=== PATIENT | female | born 1990 | race Caucasian/White ===

== ENCOUNTER → 2019-12-06 11:03 | Outpatient (BNVA) | payer OTHER, SELFPAY | PROVIDERS: PCP Internal Medicine; Referring Provider Internal Medicine; Visit Provider Advanced Practice Midwife | DX: Z76.89 Persons encountering health services in other specified circumstances (principal) ==

== ENCOUNTER 2020-07-13 15:27 | Outpatient (REF) | payer OTHER, SELFPAY ==
[2020-07-16 08:26] LABS: HBS Num1 8.21 mIU/mL (0-7.99)
[2020-07-16 10:13] LABS: HBS Num2 7.93 mIU/mL (0-7.99); ~Hepatitis B Surface Antibody GRAYZONE (Nonreactive)
[2020-07-16 17:16] LABS: Rubella IgG Antibody 3.17 Index; Varicella IgG Antibody >4000.00 index
== END 2020-07-13 15:28 | disposition home or self-care (01) ==
LOC: HO.MANLDS 15:27
PROVIDERS: PCP Internal Medicine; Visit Provider Physician Assistant
DX: Z01.84 Encounter for antibody response examination (principal)
CPT/HCPCS: 36415; 86706; 86735; 86762; 86765; 86787

== ENCOUNTER 2020-07-16 14:27 | Outpatient (REF) | payer OTHER, SELFPAY ==
[2020-07-17 08:42] LABS: HBS Num1 7.31 mIU/mL (0-7.99); ~Hepatitis B Surface Antibody NONREACTIVE (Nonreactive)
== END 2020-07-16 14:28 | disposition home or self-care (01) ==
LOC: HO.MANLDS 14:27
PROVIDERS: PCP Internal Medicine; Visit Provider Physician Assistant
DX: Z23 Encounter for immunization (principal)
CPT/HCPCS: 36415; 86706

== ENCOUNTER → 2021-07-01 13:15 | Outpatient (BNVA) | payer SELFPAY | PROVIDERS: PCP Internal Medicine; Visit Provider Physician Assistant Medical | DX: M54.9 Dorsalgia, unspecified (principal) ==

== ENCOUNTER → 2021-09-10 10:47 | Outpatient (BNVA) | payer SELFPAY | PROVIDERS: PCP Internal Medicine | DX: R76.11 Nonspecific reaction to tuberculin skin test without active tuberculosis (principal) ==

== ENCOUNTER → 2021-09-17 11:49 | Outpatient (BNVA) | payer SELFPAY | PROVIDERS: PCP Internal Medicine | DX: R76.11 Nonspecific reaction to tuberculin skin test without active tuberculosis (principal) ==

== ENCOUNTER 2022-01-15 18:06 | Outpatient (REF) | payer BC, SELFPAY ==
[2022-01-15 18:56] LABS: Influenza A PCR NEGATIVE (Negative); Influenza B PCR NEGATIVE (Negative); Resp Syncy Virus RNA Qual PCR NEGATIVE (Negative); SARS COV2 PCR INHOUSE NEGATIVE (Negative)
== END 2022-01-15 18:07 | disposition home or self-care (01) ==
LOC: HO.LNP 18:06
PROVIDERS: Visit Provider Nurse Practitioner Family
DX: Z20.822 Contact with and (suspected) exposure to COVID-19 (principal); R09.89 Other specified symptoms and signs involving the circulatory and respiratory systems
CPT/HCPCS: 0241U

== ENCOUNTER 2022-01-21 07:27 | Emergency (ER) | payer BC, SELFPAY ==
--- NOTE | ~2022-01-21 | XR_ITS ---
EXAMINATION: XR CHEST CLINICAL INFORMATION: Cough. COMPARISON: None TECHNIQUE: 2 views of the chest were obtained. FINDINGS: No significant abnormality is noted involving the heart, lungs, mediastinum, bony thorax or soft tissues. XR/XR chest 2V IMPRESSION: Unremarkable chest examination.
[2022-01-21 07:33] VITALS: BP 159/103; PULSE 113; RESP 20; TEMP 36.7; O2SAT 97; BMI 47.1
--- OUTSIDE RECORDS SUMMARY | 2022-01-21 07:52 | XMS_ITS | Continuity of Care Document ---
:1990 Author Organization [facility] Address [address] [place] [id number]- Care Team Providers Name Role Phone Kenneth Alba DO Kerry Primary Care Physician Encounter [facility] [place] Date(s): 05/25/20 - 06/24/[address] [id number]- Attending Physician: Greg Killian Admitting Physician: AdmtrGreg Referring Physician: Admtr ArLamin Allergies, Adverse Reactions, Alerts Substance Reaction Severity Status amoxicillin1 Latex allergy Moderate Active Vancomycin vancomycin2 Moderate Active Latex3 Moderate Active NyQuil D4 Moderate Active DayQuil5 Moderate Active 1abdominal [id number] Medications Freestyle Lite Lancets See Instructions, # 1 pack/packet, Refills 3, Tot. Refills 3, Maintenance, To test blood sugar 4 x day. 1 packet =100 lancets, 05/15/20 15:18:00 EDT, Compound Start Date: 05/15/20 Status: OrderedFreestyle Lite Monitor See Instructions, # 1 kit, Refills 0, Tot. Refills 0, Maintenance, To test BS 4 x day., 05/15/20 15:18:00 EDT, Compound Start Date: 05/15/20 Status: OrderedFreestyle Lite Test Strips See Instructions, # 1 pack/packet, Refills 3, Tot. Refills 3, Maintenance, To test blood sugar 4 x day. 1 Bottle= 100 test strips, 05/15/20 15:18:00 EDT, Compound Start Date: 05/15/20 Status: OrderedPepcid 20 mg oral tablet 1 tablet = 20 mg, By Mouth, 2 times a day, # 60 tablet, 0 Refills, Maintenance, 06/20/20 22:41:00 EDT, Tablet, Partial fill upon patient request if the prescription is for a schedule II opioid drug. Start Date: 06/20/20 Status: OrderedTylenol 325 mg oral tablet 650 mg, 2, tablet, By Mouth, Every 4 hours, Refills 0, Maintenance, 06/20/20 22:41:00 EDT, Partial fill upon patient request if the prescription is for a schedule II opioid drug. Start Date: 06/20/20 Status: Ordered Problem List Condition Effective Dates Status Health Status Informant Eczema(Confirmed) Active Gestational diabetes(Confirmed) Active Gestational diabetes mellitus, class 06/20/20 Active A>1<(Confirmed)1 History of MRSA infection(Confirmed) Active Obesity(Confirmed) Active Back spasm(Confirmed) Active 1Problem added by Discern Expert Social History Social History Type Response Smoking Status Never (less than 100 in life time) entered on: 06/20/20 Sex
--- OUTSIDE RECORDS SUMMARY | 2022-01-21 07:52 | XMS_ITS | Continuity of Care Document ---
:1990 Author Organization [facility] Address [address] [place] [id number]- Care Team Providers Name Role Phone Kenneth Alba DO Kerry Primary Care Physician [place] [facility] [place] Date(s): 06/04/20 - 07/04/20 [facility] [address] [place] [id number] Attending Physician: AdmtrGreg Admitting Physician: Admtr, [id number] Referring Physician: Admtr, [id number] Allergies, Adverse Reactions, Alerts Substance Reaction Severity Status amoxicillin1 Latex allergy Moderate Active Vancomycin vancomycin2 Moderate Active Latex3 Moderate Active NyQuil D4 Moderate Active DayQuil5 Moderate Active 1abdominal [id number] Medications Freestyle Lite Lancets See Instructions, # [...]
--- OUTSIDE RECORDS SUMMARY | 2022-01-21 07:52 | XMS_ITS | Continuity of Care Document ---
:1990 Author Organization [facility] Address [address] [place] [id number]- Care Team Providers Name Role Phone Kenneth Alba DO Kerry Primary Care Physician Encounter [facility] [place] Date(s): 06/20/20 - 06/21/[address] [address] Discharge Disposition: A-D/C Home Attending Physician: Leighann Springer MD Admitting Physician: Leighann Springer MD Referring Physician: Leighann Springer MD Allergies, Adverse Reactions, Alerts Substance Reaction Severity Status amoxicillin1 Latex allergy Moderate Active Vancomycin vancomycin2 Moderate Active Latex3 Moderate Active NyQuil D4 Moderate Active DayQuil5 Moderate Active 1abdominal [id number] Medications Freestyle Lite Lancets See Instructions, # [...] spasm(Confirmed) Active 1Problem added by Discern Expert Vital Signs Most recent to oldest [Reference Range]: 1 Weight 121.4 kg (06/20/20 10:34 PM) Oxygen Saturation [94-100 %] 99 % (06/20/20 10:50 PM) Blood Pressure [90-138/55-84 mm Hg] 114/74 mm Hg (06/20/20 10:50 PM) Respiratory Rate [16-30 br/min] 18 br/min (06/20/20 10:50 PM) Temperature [96.8-100.4 DegF] 98.1 DegF (06/20/20 10:50 PM) Mode of Delivery (Oxygen) Room air (06/20/20 10:50 PM) Blood pressure sites Arm, left (06/20/20 10:50 PM) Temperature Route Oral (06/20/20 10:50 PM) Dry Weight 121.4 kg (06/20/20 10:34 PM) Weight Obtained Via Standing scale (06/20/20 10:34 PM) Social History Social History Type Response Smoking Status Never (less than 100 in life time) entered on: 06/20/20 Sex
--- OUTSIDE RECORDS SUMMARY | 2022-01-21 07:52 | XMS_ITS | Continuity of Care Document ---
:1990 Author Organization [facility] Address [address] [place] [phone]- Care Team Providers Name Role Phone Kenneth Alba DO Primary Care Physician Encounter [facility] [place] Date(s): 07/19/20 - 07/21/[address] [id number] Discharge Disposition: A-D/C Home Attending Physician: Paco Nicole MD Admitting Physician: Paco Nicole MD Referring Physician: Paco Nicole MD Allergies, Adverse Reactions, Alerts Substance Reaction Severity Status amoxicillin1 Latex allergy Moderate Active Vancomycin vancomycin2 Moderate Active Latex3 Moderate Active NyQuil D4 Moderate Active DayQuil5 Moderate Active 1abdominal [id number] Medications Acetaminophen Tablet 650 mg, Tablet, By Mouth, Every 4 hours, PRN for Pain , Mild, (1-3), may give 325mg per patient preference and re-dose with 325mg within 4 hours, if needed. Patient should only receive a total of 650mgof Acetaminophen every 4 hours., Routine, 07/20... Start Date: 07/20/20 Stop Date: 07/22/20 Status: DiscontinuedDocusate Sodium Capsule 100 mg, 1, capsule, By Mouth, 2 times a day, PRN, Refills 0, Maintenance, Constipation, 07/21/20 12:34:00 EDT, Partial fill upon patient request if the prescription is for a schedule II opioid drug. Start Date: 07/21/20 Status: Orderedibuprofen 800 mg oral tablet 800 mg, 1, tablet, By Mouth, Every 8 hours, PRN, (4-6), may give 400mg per patient preference and re-dose with 400mg within 8 hours if needed. Patient should only receive a total of 800mg of Ibuprofen every 8 hours., Refills 0, Maintenance, Pain , M... Start Date: 07/21/20 Status: OrderedTylenol 325 mg oral tablet 650 mg, 2, tablet, By Mouth, Every 4 hours, Refills 0, Maintenance, 06/20/20 22:41:00 EDT, Partial fill upon patient request if the prescription is for a schedule II opioid drug. Start Date: 06/20/20 Status: Ordered Problem List Condition Effective Dates Status Health Status Informant Eczema(Confirmed) Active Gestational diabetes(Confirmed) Active History of MRSA infection(Confirmed) Active Obesity(Confirmed) Active Post depression(Confirmed)1 Active Back spasm(Confirmed) Active 1? H/O in second Vital Signs Most recent to oldest 1 2 3 [Reference Range]: Height 160 cm 160 cm 160 cm (07/21/20 11:30 AM) (07/20/20 11:13 PM) (07/20/20 8 :00 AM) Weight 125.9 kg (07/19/20 9:33 PM) Oxygen Saturation [94-100 100 % 100 % 100 % %] (07/20/20 12:45 AM) (07/20/20 12:30 AM) (07/20/20 1 2:15 AM) Pulse Rate [55-90 bpm] 86 bpm 84 bpm 90 bpm (07/21/20 11:31 AM) (07/20/20 11:13 PM) (07/20/20 4 :59 PM) Body Mass Index 49.18 [18.5-24.99] *>HHI* (07/19/20 9:33 PM) Blood Pressure 142/73 mm Hg 111/59 mm Hg 138/77 mm Hg [90-138/55-84 mm Hg] *H* (07/20/20 11:13 PM) (07/20/20 4:59 PM) (07/21/20 11:31 AM) Respiratory Rate [16-30 18 br/min 18 br/min 18 br/mi n br/min] (07/21/20 11:31 AM) (07/20/20 11:13 PM) (07/20/20 5 :59 PM) Temperature [96.8-100.4 98.2 DegF 98.4 DegF 98.2 Deg F DegF] (07/21/20 11:31 AM) (07/20/20 11:13 PM) (07/20/20 4 :59 PM) Mode of Delivery (Oxygen) Room air Room air (07/19/20 9:33 PM) (07/19/20 5:28 PM) Blood pressure sites Arm, left Arm, left Arm, left (07/21/20 11:31 AM) (07/20/20 11:13 PM) (07/19/20 9 :33 PM) Temperature Route Oral Oral Oral (07/21/20 11:31 AM) (07/20/20 11:13 PM) (07/20/20 4 :59 PM) Dry Weight 125.9 kg (07/19/20 9:33 PM) Weight Obtained Via Patient/family stated (07/19/20 9:33 PM) Dry Weight Obtained Via Patient/family stated (07/19/20 9:33 PM) Social History Social History Type Response Smoking Status Never (less than 100 in life time) entered on: 06/20/20 Sex
--- NOTE | 2022-01-21 08:13 | ECG_ITS ---
Test Reason : SOB Blood Pressure : / mmHG Vent. Rate : 079 BPM Atrial Rate : 079 BPM P-R Int : 160 ms QRS Dur : 080 ms QT Int : 340 ms P-R-T Axes : 030 031 016 degrees QTc Int : 389 ms Normal sinus rhythm with sinus arrhythmia Normal ECG When compared with ECG of 19-OCT-2017 09:27, No significant change was found Referred By: Myrtle Velasco Electronically Signed By:JHON BROWN MD
--- NOTE | 2022-01-21 08:16 | ED.URI ---
HPI - URI/Sore Throat General Chief Complaint: Upper Respiratory Symptoms Stated Complaint: Bronchitis Chest Tightness Cough Time Seen by Provider: 01/21/22 08:04 Source: patient Mode of arrival: ambulatory History of Present Illness HPI Narrative: 31-year-old female with a past medical history of bronchitis presenting to the ED complaining of continued dry cough, chest tightness, SOB, and orthopnea x3 weeks. reports heart rate was elevated into the 130s overnight. Admits has been seen at urgent care twice finished 5 day course of prednisone 2 days ago without relief. States feels like she is wheezing. Denies sick contacts, recent travel, pedal edema, calf pain, cigarette smoking, abdominal pain, nausea/vomiting MD elicited complaint: sore throat, rhinorrhea and nasal congestion Onset (ago): week(s) Related Data Previous Rx's Medication Instructions Recorded prednisone 20 mg tablet 40 mg PO DAILY 5 days #10 tabs 01/15/22 albuterol sulfate 90 mcg/actuation 2 puff inhalation Q4-6H PRN 01/21/22 aerosol inhaler shortness of breath or wheezing #6.7 grams benzonatate 100 mg capsule 100 mg PO TID PRN cough #14 caps 01/21/22 ondansetron 4 mg disintegrating 4 mg PO Q8H PRN nausea and 01/21/22 tablet vomiting #10 tabs Allergies Allergy/AdvReac Type Severity Reaction Status Date / Time latex [Latex] Allergy Intermediate HIVES Verified 01/15/22 15:33 vancomycin [VANCOMYCIN] Allergy Intermediate ITCHING, Verified 01/15/22 15:33 REDNESS, hives amoxicillin Allergy Unknown nausea and Verified 01/15/22 15:33 vomiting-severe abdominal pain doxylamine [From NYQUIL] Allergy Unknown HIVES Verified 01/15/22 15:33 dextromethorphan Allergy Vomiting Verified 01/21/22 07:36 guaifenesin Allergy Vomiting Verified 01/21/22 07:36 DayQuil Multi-Symptom Allergy Unknown hives Uncoded 01/15/22 15:33 Review of Systems Review of Systems: Constitutional: No Fever, No Chills, No Fatigue, No Malaise ENT/Mouth: No Ear Pain, + Nasal Congestion, + sore throat, + Rhinorrhea, No Swallowing Difficulty Eyes: No Eye Pain, No Swelling, No Redness, No Vision Changes Cardiovascular: + Chest tightness, + SOB, No Dyspnea on Exertion, + Orthopnea, No Edema, No Palpitations Respiratory: + Cough, No Sputum, + Wheezing, No Smoke Exposure, No Dyspnea Gastrointestinal: No Nausea, No Vomiting, No Diarrhea, No Constipation, No Abdominal pain Genitourinary: No Dysuria, No Urinary Frequency, No Hematuria, No Flank Pain Musculoskeletal: No joint pain, No Myalgias, No Joint Swelling Skin: No Skin Lesions, No rash Neuro: No Weakness, No Numbness, No Loss of Consciousness, No Dizziness, No Headache Yes all other systems are reviewed and are negative Constitutional: Constitutional: Reports as per [facility] Past Medical History Attestation statement: The following information was validated with the patient. Social History Social History Patient Tobacco Use Status: Never used Tobacco Advance Directives: No Physical Exam Vital Signs: Vital Signs: Last Vital Signs Temp 98.1 F 01/21/22 07:33 Pulse 95 01/21/22 10:17 Resp 16 01/21/22 10:17 BP 151/74 H 01/21/22 10:17 Pulse Ox 96 01/21/22 10:17 O2 Del Method 01/21/22 10:17 BMI result Body Mass Index 47.1 Const: General: cooperative, healthy appearing and no acute distress Orientation/consciousness: patient oriented x3 Limitations: no limitations HEENT: Head: Yes normal to inspection and Yes atraumatic Ears: hearing grossly normal bilaterally General nose exam: Normal external nose present Face and sinus: Yes normal facial exam Throat: Yes posterior oropharynx normal, Yes tonsils normal and Yes uvula midline Eyes: General: appearance normal, both eyes and all related structures EOM: EOMs intact bilaterally Neck: Neck: Yes normal visual inspection and Yes no meningeal signs Resp: Effort & Inspection: normal respiratory effort, Actively coughing Quality: dry and no respiratory distress Auscultation: clear to auscultation bilaterally, no crackles, no rales, no rhonchi and no wheezes Cardio: Rate: regular rate Heart sounds: S1 normal heart sound present and S2 normal heart sound present GI: Inspection: Yes normal to inspection Palpation (GI): Soft to palpation, nontender, no guarding and not rigid Skin: Rashes: no rashes Wounds: no wounds Neuro: General: patient oriented x3, tone normal and no meningeal signs Gait exam (Neuro): Normal gait present Extrem: General: Yes normal to inspection, Yes no pedal edema and Yes no calf tenderness Course Course Course Narrative: -1000-- no leukocytosis. BUN mildly elevated likely from dehydration. Labs otherwise unremarkable, troponin and BNP WNL XR chest 2V IMPRESSION: Unremarkable chest examination. -influenza A positive Results discussed with patient including worrisome signs and symptoms and strict return precautions, and when to return to the emergency department. They verbalized understanding and feel safe for discharge at this time. Medications Administered Discontinued Medications Generic Name Dose Route Start Last Admin Trade Name Freq PRN Reason Stop Dose Admin Hydrocodone Bit/Homatropine Methylb 5 ml 01/21/22 08:13 01/21/22 08:52 Hydrocodone/Homat 5/1.5/5 Ml 5 Ml Syrup PO 01/21/22 08:14 Not Given ONCE ONE Levalbuterol HCl 1.25 mg 01/21/22 08:13 01/21/22 09:04 Levalbuterol Hcl 1.25 Mg/0.5 Ml Vial.Neb INHALE 01/21/22 08:14 1.25 mg ONCE ONE Administration MDM - URI/Sore Throat MDM Narrative Medical decision making narrative: 31-year-old female with a past medical history of bronchitis presenting to the ED complaining of continued dry cough, chest tightness, SOB, and orthopnea x3 weeks. On exam hypertensive & tachycardic likely from coughing on exam, lungs CTA, nontoxic appearing, no pedal edema/calf tenderness. Concern for viral illness vs bronchitis vs pneumonia. Symptoms atypical for ACS/ PE. Lower suspicion for CHF plan: EKG, labs, CXR, Xopenex, COVID-19/influenza/ RSV testing Differential Diagnosis Differential diagnosis: Likely upper respiratory infection, viral infection, bronchitis, influenza and pharyngitis Medical Records Attestation: I reviewed the patient's medical records. Lab Data Attestation: I reviewed the patient's lab results. Result diagrams: 01/21/22 08:39 01/21/22 08:39 Labs: Lab Results 01/21/22 01/21/22 01/21/22 Range/Units 08:16 08:39 08:39 WBC 10.5 (4.8-10.8) X10*3/uL RBC 4.46 (4.20-5.50) X10*6/uL Hgb 12.9 (12.0-16.0) g/dl Hct 38.5 (37.0-47.0) % MCV 86.3 (80.0-98.0) fL MCH 28.9 (27.0-33.0) pg MCHC 33.5 (31.0-35.0) g/dl RDW 13.1 (11.0-16.0) % Plt Count 330 (160-400) X10*3/uL MPV 8.7 L (9.4-12.3) fL Immature Gran % (Auto) 0.6 H (0.0-0.4) % Neut % (Auto) 66.8 (45-73) % Lymph % (Auto) 25.1 (20-40) % Rolette % (Auto) 4.2 (2-11) % Eos % (Auto) 2.9 (0-4) % Baso % (Auto) 0.4 (0-2) % Lymph # (Auto) 2.6 (1.2-4.9) X10*3/uL Rolette # (Auto) 0.4 (0.1-1.2) X10*3/uL Eos # (Auto) 0.3 (0.0-0.4) X10*3/uL Baso # (Auto) 0.0 (0.0-0.2) X10*3/uL Abs Immat Gran (auto) 0.06 H (0.00-0.03) X10*3/uL Absolute Neuts (auto) 7.0 (2.0-8.3) x10*3/uL Absolute Nucleated RBC 0.000 (0.0-0.012) X10*3/uL Nucleated RBC % (auto) 0.0 (0.0-0.2) /100WBC Sodium 137 (135-145) mmol/L Potassium 4.0 (3.3-5.1) mmol/L Chloride 103 (96-108) mmol/L Carbon Dioxide 27 (22-29) mmol/L Anion Gap 11 L (12-20) BUN 18 H (9-16) mg/dL Creatinine 0.72 (0.5-1.4) mg/dL Estim Creat Clear Calc 141.1 Estimated GFR > 60 Random Glucose 88 (60-115) mg/dL Calcium 8.8 (8.4-10.2) mg/dL Troponin I High Sens (<3.5-17.0) ng/L B-Natriuretic Peptide (<100) pg/mL Influenza Type A (PCR) POSITIVE A (Negative) Influenza Type B (PCR) NEGATIVE (Negative) RSV RNA Qual (PCR) NEGATIVE (Negative) SARS-CoV-2 RNA (RT-PCR) NEGATIVE (Negative) 01/21/22 01/21/22 Range/Units 08:39 08:39 WBC (4.8-10.8) X10*3/uL RBC (4.20-5.50) X10*6/uL Hgb (12.0-16.0) g/dl Hct (37.0-47.0) % MCV (80.0-98.0) fL MCH (27.0-33.0) pg MCHC (31.0-35.0) g/dl RDW (11.0-16.0) % Plt Count (160-400) X10*3/uL MPV (9.4-12.3) fL Immature Gran % (Auto) (0.0-0.4) % Neut % (Auto) (45-73) % Lymph % (Auto) (20-40) % Rolette % (Auto) (2-11) % Eos % (Auto) (0-4) % Baso % (Auto) (0-2) % Lymph # (Auto) (1.2-4.9) X10*3/uL Rolette # (Auto) (0.1-1.2) X10*3/uL Eos # (Auto) (0.0-0.4) X10*3/uL Baso # (Auto) (0.0-0.2) X10*3/uL Abs Immat Gran (auto) (0.00-0.03) X10*3/uL Absolute Neuts (auto) (2.0-8.3) x10*3/uL Absolute Nucleated RBC (0.0-0.012) X10*3/uL Nucleated RBC % (auto) (0.0-0.2) /100WBC Sodium (135-145) mmol/L Potassium (3.3-5.1) mmol/L Chloride (96-108) mmol/L Carbon Dioxide (22-29) mmol/L Anion Gap (12-20) BUN (9-16) mg/dL Creatinine (0.5-1.4) mg/dL Estim Creat Clear Calc Estimated GFR Random Glucose (60-115) mg/dL Calcium (8.4-10.2) mg/dL Troponin I High Sens < 3.5 (<3.5-17.0) ng/L B-Natriuretic Peptide < 10 (<100) pg/mL Influenza Type A (PCR) (Negative) Influenza Type B (PCR) (Negative) RSV RNA Qual (PCR) (Negative) SARS-CoV-2 RNA (RT-PCR) (Negative) ECG Data Attestation: I personally reviewed and interpreted this ECG as follows: ECG interpretation date: 01/21/22 ECG interpretation time: 08:24 Interpretation: EKG normal sinus rhythm with sinus arrhythmia at a rate of 79. QRS 80. QTC 389. No STEMI Discharge Plan Discharge Clinical Impression: Influenza A Patient Disposition: Home, Self-Care Instructions: Influenza (ED) Additional Instructions: you have influenza A. You are contagious, cover mouth, wash her hands rest, stay hydrated, take Tylenol and Motrin as needed. Use albuterol inhaler as needed for shortness of breath / wheezing Zofran as antinausea medication. Tessalon Perles for cough If symptoms persist or worsen return to the emergency department. Please follow-up with her doctor Prescriptions: New benzonatate 100 mg capsule 100 mg PO TID PRN (Reason: cough) Qty: 14 0RF albuterol sulfate 90 mcg/actuation HFA aerosol inhaler 2 puff inhalation Q4-6H PRN (Reason: shortness of breath or wheezing) Qty: 6.7 0RF ondansetron 4 mg tablet,disintegrating 4 mg PO Q8H PRN (Reason: nausea and vomiting) Qty: 10 0RF No Action prednisone 20 mg tablet 40 mg PO DAILY 5 Days Qty: 10 0RF Referrals: Kenneth Alba MD [Primary Care Provider] - 1 week Stand Alone Forms: Work/School Release Interventions: ED Discharge Assessment Last Done: 01/21/22 10:32 Discharge Date/Time: 01/21/22 10:33
[2022-01-21 08:43] LABS: MANUAL DIFF FLAG NO
[2022-01-21 08:46] LABS: Basophils Percent Auto 0.4 % (0-2); Eosinophils Absolute Auto 0.3 X10*3/uL (0.0-0.4); Eosinophils Percent Auto 2.9 % (0-4); Hematocrit 38.5 % (37.0-47.0); Hemoglobin 12.9 g/dl (12.0-16.0); Imm Gran Abs Auto 0.06 X10*3/uL (0.00-0.03); Imm Gran Pct Auto 0.6 % (0.0-0.4); Lymphocytes Absolute Auto 2.6 X10*3/uL (1.2-4.9); Lymphocytes Percent Auto 25.1 % (20-40); Mean Corpuscular HGB Conc 33.5 g/dl (31.0-35.0); Mean Corpuscular Hemoglobin 28.9 pg (27.0-33.0); Mean Corpuscular Volume 86.3 fL (80.0-98.0); Mean Platelet Volume 8.7 fL (9.4-12.3); Monocytes Absolute Auto 0.4 X10*3/uL (0.1-1.2); Monocytes Percent Auto 4.2 % (2-11); Neutrophils Percent Auto 66.8 % (45-73); Platelet Count 330 X10*3/uL (160-400); Red Blood Count 4.46 X10*6/uL (4.20-5.50); Red Cell Distribution Width 13.1 % (11.0-16.0); White Blood Count 10.5 X10*3/uL (4.8-10.8)
[2022-01-21 08:59] LABS: Anion Gap 11 (12-20); Blood Urea Nitrogen 18 mg/dL (9-16); Calcium 8.8 mg/dL (8.4-10.2); Carbon Dioxide 27 mmol/L (22-29); Chloride 103 mmol/L (96-108); Creatinine Clr Calc Pharmacy 141.1; Estimated Glomerular Filt Rate > 60; Glucose Random 88 mg/dL (60-115); Sodium 137 mmol/L (135-145)
[2022-01-21 09:08] VITALS: PULSE 85; RESP 16; O2SAT 99
[2022-01-21 09:26] LABS: Influenza A PCR POSITIVE (Negative); Influenza B PCR NEGATIVE (Negative); Resp Syncy Virus RNA Qual PCR NEGATIVE (Negative); SARS COV2 PCR INHOUSE NEGATIVE (Negative)
[2022-01-21 09:38] LABS: B Type Natriuretic Peptide < 10 pg/mL (<100)
[2022-01-21 09:46] LABS: Troponin-I High Sensitivity < 3.5 ng/L (<3.5-17.0)
[2022-01-21 10:17] VITALS: BP 151/74; PULSE 95; RESP 16; O2SAT 96
== END 2022-01-21 10:33 | disposition home or self-care (01) ==
PROVIDERS: Physician Assistant; Emergency Provider Emergency Medicine; PCP Internal Medicine
DX: J10.1 Influenza due to other identified influenza virus with other respiratory manifestations (principal); R05.9 Cough, unspecified; I49.8 Other specified cardiac arrhythmias; R06.02 Shortness of breath; Z20.822 Contact with and (suspected) exposure to COVID-19; Z79.899 Other long term (current) drug therapy
CPT/HCPCS: 0241U; 36415; 71046; 80048; 83880; 84484; 85025; 93005; 94640; 99284

== ENCOUNTER 2022-04-08 02:35 | Emergency (ER) | payer BC, SELFPAY ==
--- NOTE | ~2022-04-08 | CT_ITS ---
EXAMINATION: CT ABDOMEN AND PELVIS WITHOUT CONTRAST CLINICAL INFORMATION: Right flank pain. COMPARISON: None TECHNIQUE: Multidetector volumetric imaging was performed from the superior aspect of the liver through the pubic symphysis. Sagittal and coronal reformatted images were obtained on the technologist's workstation. This CT examination was performed using dose optimization techniques as appropriate, variously including the following: *Automated exposure control *Adjustment of mA and/or kV according to patient size (this includes techniques or standardized protocols for targeted exams where dose is matched to indication/reason for exam; i.e. extremities or head) *Use of iterative reconstruction technique DLP: 981 mGy-cm FINDINGS: LUNG BASES: The visualized lung bases are unremarkable. LIVER, GALLBLADDER, AND BILIARY TREE: The liver is normal in size and shape with decreased attenuation. No focal hepatic lesion or biliary ductal dilatation is present. The gallbladder is unremarkable with no evidence of radiopaque gallstones, gallbladder wall thickening, or obvious pericholecystic inflammatory changes. PANCREAS: Unremarkable. SPLEEN: Unremarkable. ADRENAL GLANDS: Unremarkable. KIDNEYS AND URETERS: The kidneys are normal in size, shape, and attenuation. Mild right hydroureteronephrosis. Distal ureteral 0.4 cm calculus is 2.5 cm from the ureterovesicular junction. 0.3 cm right lower pole renal calculus is 15 cm from the posterior axillary line. BLADDER: Unremarkable. GASTROINTESTINAL TRACT: The small and large bowel are unremarkable. The appendix is unremarkable. ABDOMINAL WALL: No significant hernia is appreciated. LYMPH NODES: Normal. VASCULAR: Unremarkable. PELVIC VISCERA: The uterus and adnexa are unremarkable. IUD in place. OSSEOUS STRUCTURES: No acute or suspicious osseous abnormality. Mild degenerative change of L4-L5. CT/CT abdomen pelvis wo IV con IMPRESSION: 1. Mild right hydroureteronephrosis with a 0.4 cm distal ureteral obstructing calculus. 2. Hepatic steatosis. Fleischner guidelines were followed.
[2022-04-08 02:39] VITALS: BP 151/75; PULSE 88; RESP 18; TEMP 36.3; O2SAT 97; BMI 47.8
[2022-04-08 03:00] LABS: MANUAL DIFF FLAG NO
[2022-04-08 03:02] LABS: Basophils Absolute Auto 0.1 X10*3/uL (0.0-0.2); Basophils Percent Auto 0.4 % (0-2); Eosinophils Absolute Auto 0.1 X10*3/uL (0.0-0.4); Eosinophils Percent Auto 0.7 % (0-4); Hematocrit 35.5 % (37.0-47.0); Hemoglobin 12.3 g/dl (12.0-16.0); Imm Gran Abs Auto 0.06 X10*3/uL (0.00-0.03); Imm Gran Pct Auto 0.4 % (0.0-0.4); Lymphocytes Absolute Auto 1.5 X10*3/uL (1.2-4.9); Lymphocytes Percent Auto 10.7 % (20-40); Mean Corpuscular HGB Conc 34.6 g/dl (31.0-35.0); Mean Corpuscular Hemoglobin 29.6 pg (27.0-33.0); Mean Corpuscular Volume 85.3 fL (80.0-98.0); Mean Platelet Volume 9.4 fL (9.4-12.3); Monocytes Absolute Auto 0.5 X10*3/uL (0.1-1.2); Monocytes Percent Auto 3.4 % (2-11); Neutrophils Absolute Auto 11.7 x10*3/uL (2.0-8.3); Neutrophils Percent Auto 84.4 % (45-73); Platelet Count 274 X10*3/uL (160-400); Red Blood Count 4.16 X10*6/uL (4.20-5.50); Red Cell Distribution Width 12.5 % (11.0-16.0); White Blood Count 13.9 X10*3/uL (4.8-10.8)
[2022-04-08 03:22] LABS: Anion Gap 15 (12-20); Blood Urea Nitrogen 19 mg/dL (9-16); Calcium 8.8 mg/dL (8.4-10.2); Carbon Dioxide 20 mmol/L (22-29); Chloride 106 mmol/L (96-108); Creatinine Clr Calc Pharmacy 107.9; Estimated Glomerular Filt Rate > 60; Glucose Random 134 mg/dL (60-115); Potassium 4.4 mmol/L (3.3-5.1); Sodium 137 mmol/L (135-145)
[2022-04-08 03:31] LABS: Appearance Urine Clear; Color Urine Yellow; Glucose Urine UA Negative (Negative); Leukocyte Esterase Urine Small (1+) (Negative); Nitrite Urine Negative (Negative); Specific Gravity - Urine 1.025 (1.005-1.025); UMIC TRIGGER UACC YES; Urine Blood Large (3+) (Negative); Urine Ketones Negative (Negative); Urine Protein Trace mg/dL (Neg-Trace)
[2022-04-08 03:33] LABS: UPreg QC Valid YES; Urine Pregnancy NEGATIVE (NEGATIVE)
[2022-04-08] MEDS: levoFLOXacin/D5W 750 MG/150 ML PIGGYBACK 100 MG IV (03:36)
[2022-04-08] MEDS: Morphine Sulfate 2 MG/ML CARTRIDGE IVPUSH (03:36)
--- NOTE | 2022-04-08 03:38 | ED.GENADULT ---
HPI - General Adult General Chief complaint: Nausea/Vomiting/Diarrhea Stated complaint: UTI, Vomiting, Nausea, pain Time Seen by Provider: 04/08/22 03:12 Source: patient Mode of arrival: ambulatory Limitations: no limitations History of Present Illness HPI narrative: 31-year-old female came in for evaluation of right flank pain. Patient's symptoms started 4 days ago with right flank /right lower back area discomfort, patient also been having urinary frequency with dysuria for the past 4 days patient's symptoms progressed and became worse PCP prescribed over the phone Bactrim for presumed UTI, patient started to have vomiting 2 hours ago patient was instructed to come to the ED for further evaluation. Patient declined fever or chills, patient is sexually active with 1 partner with no risk for STDs no vaginal bleed or discharge. Patient has a normal bowel movement otherwise. Related Data Previous Rx's Medication Instructions Recorded prednisone 20 mg tablet 40 mg PO DAILY 5 days #10 tabs 01/15/22 albuterol sulfate 90 mcg/actuation 2 puff inhalation Q4-6H PRN 01/21/22 aerosol inhaler shortness of breath or wheezing #6.7 grams benzonatate 100 mg capsule 100 mg PO TID PRN cough #14 caps 01/21/22 ondansetron 4 mg disintegrating 4 mg PO Q8H PRN nausea and 01/21/22 tablet vomiting #10 tabs oxycodone 5 mg tablet 5 mg PO BID PRN pain #14 tabs 04/08/22 prednisone 5 mg tablet 5 mg PO BID #8 tabs 04/08/22 Allergies Allergy/AdvReac Type Severity Reaction Status Date / Time latex [Latex] Allergy Intermediate HIVES Verified 04/08/22 02:44 vancomycin [VANCOMYCIN] Allergy Intermediate ITCHING, Verified 04/08/22 02:44 REDNESS, hives amoxicillin Allergy Unknown nausea and Verified 04/08/22 02:44 vomiting-severe abdominal pain doxylamine [From NYQUIL] Allergy Unknown HIVES Verified 04/08/22 02:44 dextromethorphan Allergy Vomiting Verified 04/08/22 02:44 guaifenesin Allergy Vomiting Verified 04/08/22 02:44 DayQuil Multi-Symptom Allergy Unknown hives Uncoded 04/08/22 02:44 Review of Systems Review of Systems: All other systems are reviewed and are negative Constitutional: Reports as per HPI and Reports no additional constitutional complaints Eyes: Reports as per HPI and Reports no additional eye complaints Reports system reviewed and no additional complaints, except as documented Cardiovascular: Reports as per HPI and Reports no additional cardiovascular complaints Respiratory: Reports as per HPI and Reports no additional respiratory complaints Gastrointestinal: Reports as per HPI and Reports no additional gastrointestinal complaints Genitourinary: Reports no additional female genitourinary complaints Musculoskeletal: Reports no additional musculoskeletal complaints Skin/Breast: Reports system reviewed and no additional complaints, except as docu Psychiatric: Reports no additional psychiatric complaints Endocrine: Reports no additional endocrine complaints Hematologic/Lymphatic: Reports no additional hematologic/lymphatic complaints Allergic/Immunologic: Reports no additional allergic/immunologic complaints Reports system reviewed and no additional complaints, except as documented and Reports Abnormal speech present [facility] Social History Social History Patient Tobacco Use Status: Never used Tobacco Advance Directives: No Advance Directives Information Provided: Yes Physical Exam ED Vital Signs: Vital Signs - 24 hr 04/08/22 02:39 Temperature 97.3 F Pulse Rate 88 Respiratory Rate 18 Blood Pressure 151/75 H Pulse Oximetry 97 Oxygen Delivery Method Room Air BMI result Body Mass Index 47.8 vital signs have been reviewed as appeared to be correct. Blood pressure normal. Heart rate normal. Respiration rate normal. Temperature normal. Oxygen saturation normal. Appearance: Alert. Oriented X3. No acute distress. Head: Normal external exam. Normocephalic. Atraumatic. No Gonzales signs noted. No raccoon eyes noted Eyes: PERRLA. EOMI. Conjunctiva and sclera normal. Eyelids normal. ENT: TM's Normal. Pharynx normal. Uvula midline. Moist mucous membranes. No trismus noted. No drooling noted. No muffled voice noted. Neck: Normal inspection. Neck supple. FROM. No adenopathy. Thyroid Normal. No meningeal signs. No neck mass noted. CVS: Normal heart rate and rhythm. Heart sound normal. No murmurs noted. Pulses normal throughout. Respiratory: No respiratory distress. Painless inspiration. Breath sounds normal. No wheezes/rales/rhonchi noted. Chest nontender. No accessory muscle usage noted or decreased air movement noted. Abdomen: Soft and nontender. Bowel sounds normal in all 4 quadrants. No distention noted. No organomegaly noted. No visible injury noted. Back: Right CVA tenderness. Full range of motion noted. Skin: Skin warm and dry. Normal skin color. Normal skin turgor. No rashes/lesions/lacerations noted. Extremities: No lower extremity edema. Extremities exhibit normal range of motion. Extremities nontender. Neuro: Oriented X 3. Cranial nerve exam: II-XII are grossly intact No motor deficit. No sensory deficit. Reflexes normal. Course Course Course Narrative: right flank pain for the past 4 days, workup revealed for right ureteric stone, patient feels better after was given Toradol Dilaudid, Zofran and IV hydration, patient do not need antibiotic at this point no evidence of UTI. Patient was instructed to drink plenty of fluids and follow up with Dr. Silva as an outpatient. Medications Administered Generic Name Dose Route Start Last Admin Trade Name Freq PRN Reason Stop Dose Admin Levofloxacin 750 mg in 150 mls @ 100 mls/hr 04/08/22 03:21 04/08/22 03:36 Levaquin IV 04/08/22 04:50 100 mls/hr ONCE ONE Administration Discontinued Medications Generic Name Dose Route Start Last Admin Trade Name Freq PRN Reason Stop Dose Admin Morphine Sulfate 2 mg 04/08/22 03:21 04/08/22 03:36 Morphine Sulfate 2 Mg/Ml Cartridge IVPUSH 04/08/22 03:22 2 mg ONCE ONE Administration Protocol Medical Decision Making Differential Diagnosis Differential Diagnoses: The differential diagnosis associated with the presentation includes ( UTI, pyelonephritis, ureteric stone, renal colic, acute appendicitis.) Lab Data MDM Lab Attestation statement: I reviewed the patient's lab results. 04/08/22 02:55 04/08/22 02:55 Labs: Lab Results 04/08/22 04/08/22 04/08/22 Range/Units 02:55 02:55 02:55 WBC 13.9 H (4.8-10.8) X10*3/uL RBC 4.16 L (4.20-5.50) X10*6/uL Hgb 12.3 (12.0-16.0) g/dl Hct 35.5 L (37.0-47.0) % MCV 85.3 (80.0-98.0) fL MCH 29.6 (27.0-33.0) pg MCHC 34.6 (31.0-35.0) g/dl RDW 12.5 (11.0-16.0) % Plt Count 274 (160-400) X10*3/uL MPV 9.4 (9.4-12.3) fL Immature Gran % (Auto) 0.4 (0.0-0.4) % Neut % (Auto) 84.4 H (45-73) % Lymph % (Auto) 10.7 L (20-40) % [place] % (Auto) 3.4 (2-11) % Eos % (Auto) 0.7 (0-4) % Baso % (Auto) 0.4 (0-2) % Lymph # (Auto) 1.5 (1.2-4.9) X10*3/uL [place] # (Auto) 0.5 (0.1-1.2) X10*3/uL Eos # (Auto) 0.1 (0.0-0.4) X10*3/uL Baso # (Auto) 0.1 (0.0-0.2) X10*3/uL Abs Immat Gran (auto) 0.06 H (0.00-0.03) X10*3/uL Absolute Neuts (auto) 11.7 H (2.0-8.3) x10*3/uL Absolute Nucleated RBC 0.000 (0.0-0.012) X10*3/uL Nucleated RBC % (auto) 0.0 (0.0-0.2) /100WBC Sodium 137 (135-145) mmol/L Potassium 4.4 (3.3-5.1) mmol/L Chloride 106 (96-108) mmol/L Carbon Dioxide 20 L (22-29) mmol/L Anion Gap 15 (12-20) BUN 19 H (9-16) mg/dL Creatinine 0.95 (0.5-1.4) mg/dL Estim Creat Clear Calc 107.9 Estimated GFR > 60 Random Glucose 134 H (60-115) mg/dL Calcium 8.8 (8.4-10.2) mg/dL Total Bilirubin 0.4 (0.0-1.0) mg/dL Direct Bilirubin < 0.2 (0.0-0.5) mg/dL AST 19 (5-31) U/L ALT 16 (0-31) U/L Alkaline Phosphatase 68 (39-117) U/L Total Protein 6.5 (6.5-8.0) g/dL Albumin 3.8 (3.5-5.0) g/dL Lipase 15 (8-78) U/L Urine Color Yellow Urine Appearance Clear Urine pH 6.0 (5.0-9.0) Ur Specific [place] 1.025 (1.005-1.025) Urine Protein Trace (Neg-Trace) mg/dL Urine Glucose (UA) Negative (Negative) mg/dL Urine Ketones Negative (Negative) mg/dL Urine Blood Large (3+) H (Negative) Urine Nitrite Negative (Negative) Ur Leukocyte Esterase Small (1+) H (Negative) Urine RBC >20 H (0-2) /HPF Urine WBC 0-5 (0-5) /HPF Ur Squamous Epith Cells 0-2 (0-2) /HPF Urine Bacteria 1+ (None Seen) Hyaline Casts 0-2 (0-2) /LPF Urine Test (NEGATIVE) 04/08/22 Range/Units 02:55 WBC (4.8-10.8) X10*3/uL RBC (4.20-5.50) X10*6/uL Hgb (12.0-16.0) g/dl Hct (37.0-47.0) % MCV (80.0-98.0) fL MCH (27.0-33.0) pg MCHC (31.0-35.0) g/dl RDW (11.0-16.0) % Plt Count (160-400) X10*3/uL MPV (9.4-12.3) fL Immature Gran % (Auto) (0.0-0.4) % Neut % (Auto) (45-73) % Lymph % (Auto) (20-40) % [place] % (Auto) (2-11) % Eos % (Auto) (0-4) % Baso % (Auto) (0-2) % Lymph # (Auto) (1.2-4.9) X10*3/uL [place] # (Auto) (0.1-1.2) X10*3/uL Eos # (Auto) (0.0-0.4) X10*3/uL Baso # (Auto) (0.0-0.2) X10*3/uL Abs Immat Gran (auto) (0.00-0.03) X10*3/uL Absolute Neuts (auto) (2.0-8.3) x10*3/uL Absolute Nucleated RBC (0.0-0.012) X10*3/uL Nucleated RBC % (auto) (0.0-0.2) /100WBC Sodium (135-145) mmol/L Potassium (3.3-5.1) mmol/L Chloride (96-108) mmol/L Carbon Dioxide (22-29) mmol/L Anion Gap (12-20) BUN (9-16) mg/dL Creatinine (0.5-1.4) mg/dL Estim Creat Clear Calc Estimated GFR Random Glucose (60-115) mg/dL Calcium (8.4-10.2) mg/dL Total Bilirubin (0.0-1.0) mg/dL Direct Bilirubin (0.0-0.5) mg/dL AST (5-31) U/L ALT (0-31) U/L Alkaline Phosphatase (39-117) U/L Total Protein (6.5-8.0) g/dL Albumin (3.5-5.0) g/dL Lipase (8-78) U/L Urine Color Urine Appearance Urine pH (5.0-9.0) Ur Specific [place] (1.005-1.025) Urine Protein (Neg-Trace) mg/dL Urine Glucose (UA) (Negative) mg/dL Urine Ketones (Negative) mg/dL Urine Blood (Negative) Urine Nitrite (Negative) Ur Leukocyte Esterase (Negative) Urine RBC (0-2) /HPF Urine WBC (0-5) /HPF Ur Squamous Epith Cells (0-2) /HPF Urine Bacteria (None Seen) Hyaline Casts (0-2) /LPF Urine Test NEGATIVE (NEGATIVE) Independent Interpretation I performed an independent interpretation of an: CT Scan ( Abdomen and pelvis:1. 0.4 cm distal right ureteral calculus. No hydronephrosis. 2. Hepatic steatosis. ) Radiology Impression Discussion of test interpretation with radiology: I have reviewed the radiologist's reading. Discharge Plan Discharge Clinical Impression: Calculus of distal right ureter, Renal colic Patient Disposition: Home, Self-Care Instructions: Renal Colic (ED), Ureteral Stones (ED) Prescriptions: New oxycodone 5 mg tablet 5 mg PO BID PRN (Reason: pain) Qty: 14 0RF Rx Instructions: Partial Fill upon patient request. prednisone 5 mg tablet 5 mg PO BID Qty: 8 0RF No Action benzonatate 100 mg capsule 100 mg PO TID PRN (Reason: cough) Qty: 14 0RF albuterol sulfate 90 mcg/actuation HFA aerosol inhaler 2 puff inhalation Q4-6H PRN (Reason: shortness of breath or wheezing) Qty: 6.7 0RF ondansetron 4 mg tablet,disintegrating 4 mg PO Q8H PRN (Reason: nausea and vomiting) Qty: 10 0RF prednisone 20 mg tablet 40 mg PO DAILY 5 Days Qty: 10 0RF Referrals: Tyrel Silva MD [Physician] - Kenneth Alba MD [Primary Care Provider] - Stand Alone Forms: Work/School Release
[2022-04-08 03:54] LABS: Bacteria Urine 1+ (None Seen); Hyaline Casts Urine 0-2 /LPF (0-2); RBC Urine >20 /HPF (0-2); Squamous Epithelial Cell Urine 0-2 /HPF (0-2); UACC Culture Trigger YES; WBC Urine 0-5 /HPF (0-5)
[2022-04-08 03:59] LABS: Alanine Aminotransferase 16 U/L (0-31); Albumin Level 3.8 g/dL (3.5-5.0); Alkaline Phosphatase 68 U/L (39-117); Aspartate Amino Transferase 19 U/L (5-31); Bilirubin Direct < 0.2 mg/dL (0.0-0.5); Bilirubin Total 0.4 mg/dL (0.0-1.0); Lipase 15 U/L (8-78); Total Protein 6.5 g/dL (6.5-8.0)
[2022-04-08] MEDS: ondansetron HCL 4 MG/2 ML VIAL IVPUSH (04:49)
[2022-04-08] MEDS: Ketorolac Tromethamine 30 MG/ML VIAL IVPUSH (04:49)
[2022-04-08] MEDS: HYDROmorphone HCl 1 MG/ML SYRINGE IVPUSH (04:49)
== END 2022-04-08 06:18 | disposition home or self-care (01) ==
PROVIDERS: Emergency Provider Emergency Medicine; PCP Internal Medicine
DX: N20.1 Calculus of ureter (principal); K80.20 Calculus of gallbladder without cholecystitis without obstruction; N39.0 Urinary tract infection, site not specified; R10.9 Unspecified abdominal pain; M54.50 Low back pain, unspecified; Z79.899 Other long term (current) drug therapy
CPT/HCPCS: 36415; 74176; 80048; 80076; 81001; 81025; 83690; 85025; 87086; 96365; 96366; 96375; 99284; J1170; J1885; J1956; J2270; J2405

== ENCOUNTER → 2022-04-23 14:19 | Outpatient (BNVA) | payer BC, SELFPAY | PROVIDERS: PCP Internal Medicine; Visit Provider Nurse Practitioner Family | DX: Z13.89 Encounter for screening for other disorder (principal) ==

== ENCOUNTER 2022-05-09 09:55 | Outpatient (REF) | payer BC, SELFPAY ==
--- NOTE | ~2022-05-09 | US_ITS ---
EXAMINATION: US RETROPERITONEAL LIMITED (RENAL ONLY) CLINICAL INFORMATION: Calculus of kidney. COMPARISON: CT abdomen and pelvis 04/08/2022: Mild right hydroureteronephrosis with a 0.4 cm distal ureteral obstructing calculus. TECHNIQUE: Real-time imaging of the kidneys. FINDINGS: RIGHT KIDNEY: 13.3 x 5.1 x 5.8 cm (SAG x AP x TRV). The kidney is normal in size, contour, and echogenicity. Renal cortical thickness is normal. No calculi or focal parenchymal lesions. No hydronephrosis. The previously seen moderate hydronephrosis on the right caused by an obstructing distal ureteral calculus has resolved, presumably after passage of the stone. LEFT KIDNEY: 11.9 x 5.0 x 4.5 cm (SAG x AP x TRV). The kidney is normal in size, contour, and echogenicity. Renal cortical thickness is normal. No calculi or focal parenchymal lesions. There is some mild fullness in the left renal pelvis but no gross hydronephrosis. Incidental note made of hepatic steatosis. US/US retroperitoneal limited IMPRESSION: 1. Resolved right-sided hydronephrosis. 2. No calculi are seen. 3. Incidentally noted hepatic steatosis.
== END 2022-05-09 09:56 | disposition home or self-care (01) ==
LOC: HO.US 09:55
PROVIDERS: PCP Internal Medicine; Visit Provider Nurse Practitioner Family
DX: N20.0 Calculus of kidney (principal)
CPT/HCPCS: 76775

== ENCOUNTER 2022-05-13 16:12 | Outpatient (REF) | payer BC, SELFPAY ==
--- NOTE | ~2022-05-13 | US_ITS ---
EXAMINATION: US PELVIS LIMITED (BLADDER) CLINICAL INFORMATION: Nephrolithiasis. COMPARISON: Ultrasound kidneys 05/09/2012. CT abdomen and pelvis 04/08/2012. TECHNIQUE: Real-time imaging of the bladder. FINDINGS: The bladder is well distended and normal in appearance. Bilateral ureteral jets are demonstrated. Prevoid bladder volume is 278 mL. Postvoid bladder volume is 11.9 mL. US/US bladder IMPRESSION: Unremarkable sonographic imaging of the bladder.
== END 2022-05-13 16:13 | disposition home or self-care (01) ==
LOC: HO.US 16:12
PROVIDERS: PCP Internal Medicine; Visit Provider Nurse Practitioner Family
DX: N20.0 Calculus of kidney (principal)
CPT/HCPCS: 76857

== ENCOUNTER → 2022-05-23 08:57 | Outpatient (BNVA) | payer BC, SELFPAY | PROVIDERS: PCP Internal Medicine; Visit Provider Nurse Practitioner Family | DX: Z13.89 Encounter for screening for other disorder (principal) ==

== ENCOUNTER 2022-08-29 07:34 | Outpatient (REF) | payer BC, SELFPAY ==
[2022-08-29 10:54] LABS: MANUAL DIFF FLAG NO
[2022-08-29 11:02] LABS: Basophils Absolute Auto 0.1 X10*3/uL (0.0-0.2); Basophils Percent Auto 0.6 % (0-2); Eosinophils Absolute Auto 0.2 X10*3/uL (0.0-0.4); Eosinophils Percent Auto 2.1 % (0-4); Imm Gran Abs Auto 0.02 X10*3/uL (0.00-0.03); Imm Gran Pct Auto 0.2 % (0.0-0.4); Lymphocytes Absolute Auto 3.1 X10*3/uL (1.2-4.9); Lymphocytes Percent Auto 34.2 % (20-40); Mean Corpuscular HGB Conc 34.2 g/dl (31.0-35.0); Mean Corpuscular Hemoglobin 29.9 pg (27.0-33.0); Mean Corpuscular Volume 87.4 fL (80.0-98.0); Mean Platelet Volume 9.6 fL (9.4-12.3); Monocytes Absolute Auto 0.5 X10*3/uL (0.1-1.2); Monocytes Percent Auto 5.4 % (2-11); Neutrophils Absolute Auto 5.2 x10*3/uL (2.0-8.3); Neutrophils Percent Auto 57.5 % (45-73); Platelet Count 277 X10*3/uL (160-400); Red Blood Count 4.35 X10*6/uL (4.20-5.50); Red Cell Distribution Width 12.4 % (11.0-16.0)
[2022-08-29 11:26] LABS: Alanine Aminotransferase 16 U/L (0-31); Albumin Level 3.7 g/dL (3.5-5.0); Alkaline Phosphatase 61 U/L (39-117); Anion Gap 13 (12-20); Aspartate Amino Transferase 14 U/L (5-31); Bilirubin Total 0.5 mg/dL (0.0-1.0); Blood Urea Nitrogen 13 mg/dL (9-16); Calcium 9.3 mg/dL (8.4-10.2); Carbon Dioxide 24 mmol/L (22-29); Chloride 104 mmol/L (96-108); Cholesterol 162 mg/dL; Estimated Glomerular Filt Rate > 60; Glucose Random 108 mg/dL (60-115); HDL Cholesterol 54 mg/dL; LDL Cholesterol Calculated 91 mg/dl; Potassium 3.9 mmol/L (3.3-5.1); Sodium 137 mmol/L (135-145); Total Protein 6.7 g/dL (6.5-8.0); Triglycerides 89 mg/dL
== END 2022-08-29 07:35 | disposition home or self-care (01) ==
LOC: HO.MANLDS 07:34
PROVIDERS: Visit Provider Physician Assistant
DX: Z00.00 Encounter for general adult medical examination without abnormal findings (principal)
CPT/HCPCS: 36415; 80053; 80061; 85025

== ENCOUNTER 2024-02-27 09:33 | Emergency (ER) | payer SELFPAY ==
--- NOTE | ~2024-02-27 | XR_ITS ---
CLINICAL HISTORY: cough, cp 2 view chest x-ray. Comparison: CR/SR - XR CHEST 2V - 01/21/22 08:34 EST CR/MI - CHEST 1 VIEW - 10/19/17 09:52 EDT Findings: Normal lung volumes. New retrocardiac infiltrate likely pneumonic. No pneumothorax or pleural effusion. Heart size normal. No passive venous congestion. No midline shift or tracheal deviation. No acute fracture. Impression: 1. New retrocardiac infiltrate likely pneumonic. No parapneumonic effusion This document has been electronically signed by: Shawn Gao MD on 02/27/2024 10:18:34
[2024-02-27 09:38] VITALS: BP 138/85; PULSE 128; RESP 20; TEMP 37.1; O2SAT 94; BMI 46.3
--- NOTE | 2024-02-27 09:41 | ECG_ITS ---
Test Reason : CHEST PAIN Blood Pressure : / mmHG Vent. Rate : 131 BPM Atrial Rate : 131 BPM P-R Int : 134 ms QRS Dur : 076 ms QT Int : 300 ms P-R-T Axes : 046 031 045 degrees QTc Int : 443 ms Sinus tachycardia Cannot rule out Anterior infarct , age undetermined Abnormal ECG When compared with ECG of 21-JAN-2022 08:24, Vent. rate has increased BY 52 BPM Referred By: Generic ED Physician Electronically Signed By:RICHARD HERNANDEZ MD
[2024-02-27 10:00] LABS: MANUAL DIFF FLAG NO
[2024-02-27 10:02] LABS: Basophils Percent Auto 0.4 % (0-2); Eosinophils Percent Auto 0.4 % (0-4); Hematocrit 36.9 % (37.0-47.0); Hemoglobin 13.2 g/dl (12.0-16.0); Imm Gran Abs Auto 0.05 X10*3/uL (0.00-0.03); Imm Gran Pct Auto 0.4 % (0.0-0.4); Lymphocytes Absolute Auto 0.9 X10*3/uL (1.2-4.9); Lymphocytes Percent Auto 7.5 % (20-40); Mean Corpuscular HGB Conc 35.8 g/dl (31.0-35.0); Mean Corpuscular Hemoglobin 30.4 pg (27.0-33.0); Mean Platelet Volume 8.9 fL (9.4-12.3); Monocytes Absolute Auto 0.6 X10*3/uL (0.1-1.2); Monocytes Percent Auto 5.4 % (2-11); Neutrophils Absolute Auto 9.7 x10*3/uL (2.0-8.3); Neutrophils Percent Auto 85.9 % (45-73); Platelet Count 251 X10*3/uL (160-400); Red Blood Count 4.34 X10*6/uL (4.20-5.50); Red Cell Distribution Width 12.3 % (11.0-16.0); White Blood Count 11.3 X10*3/uL (4.8-10.8)
[2024-02-27 10:10] LABS: IDNOW Serial# 58CA691E; Strep A Nucleic Acid Positive (Negative)
[2024-02-27 10:14] LABS: Alanine Aminotransferase 11 U/L (0-31); Alkaline Phosphatase 62 U/L (39-117); Anion Gap 13 (12-20); Aspartate Amino Transferase 21 U/L (5-31); Bilirubin Total 0.7 mg/dL (0.0-1.0); Blood Urea Nitrogen 11 mg/dL (9-16); Calcium 8.9 mg/dL (8.4-10.2); Carbon Dioxide 23 mmol/L (22-29); Chloride 106 mmol/L (96-108); Creatinine Clr Calc Pharmacy 138.6; Estimated Glomerular Filt Rate > 60; Glucose Random 121 mg/dL (60-115); Potassium 3.9 mmol/L (3.3-5.1); Sodium 138 mmol/L (135-145); Total Protein 7.4 g/dL (6.5-8.0)
--- NOTE | 2024-02-27 10:26 | ED.GENADULT ---
HPI - General Adult General Chief complaint: Upper Respiratory Symptoms Stated complaint: diff breathing Time Seen by Provider: 02/27/24 10:17 Source: patient Mode of arrival: ambulatory Limitations: no limitations History of Present Illness ED Provider: DR. Santiago HPI narrative: A 33-year-old female came in for feeling generalized weakness, coughing with green phlegm, subjective fever, shortness of breath, palpitation, patient was exposed to other sick contacts with viral upper respiratory infection, no history of asthma or smoking. No recent travel, no lower extremity swelling or tenderness. Related Data Previous Rx's ?Medication ?Instructions ?Recorded albuterol sulfate 90 mcg/actuation 2 puff inhalation Q4-6H PRN 01/21/22 aerosol inhaler shortness of breath or wheezing #6.7 grams azithromycin 250 mg tablet See Rx Instructions PO .COMPLEX #6 02/27/24 (Zithromax Z-Leonard) tabs prednisone 20 mg tablet 20 mg PO BID #8 tabs 02/27/24 Allergies Allergy/AdvReac Type Severity Reaction Status Date / Time latex [Latex] Allergy Intermediate HIVES Verified 02/27/24 09:39 vancomycin [VANCOMYCIN] Allergy Intermediate ITCHING, Verified 02/27/24 09:39 REDNESS, hives amoxicillin Allergy Unknown nausea and Verified 02/27/24 09:39 vomiting-severe abdominal pain doxylamine [From NYQUIL] Allergy Unknown HIVES Verified 02/27/24 09:39 dextromethorphan Allergy Vomiting Verified 02/27/24 09:39 guaifenesin Allergy Vomiting Verified 02/27/24 09:39 DayQuil Multi-Symptom Allergy Unknown hives Uncoded 05/23/22 10:48 Review of Systems Review of Systems: All other systems are reviewed and are negative Constitutional: Reports as per HPI and Reports no additional constitutional complaints Eyes: Reports as per HPI and Reports no additional eye complaints Reports system reviewed and no additional complaints, except as documented Cardiovascular: Reports as per HPI and Reports no additional cardiovascular complaints Respiratory: Reports as per HPI and Reports no additional respiratory complaints Gastrointestinal: Reports as per HPI and Reports no additional gastrointestinal complaints Genitourinary: Reports no additional female genitourinary complaints Musculoskeletal: Reports no additional musculoskeletal complaints Skin/Breast: Reports system reviewed and no additional complaints, except as docu Psychiatric: Reports no additional psychiatric complaints Endocrine: Reports no additional endocrine complaints Hematologic/Lymphatic: Reports no additional hematologic/lymphatic complaints Allergic/Immunologic: Reports no additional allergic/immunologic complaints Reports system reviewed and no additional complaints, except as documented and Reports Abnormal speech present [facility] Social History Social History Alcohol intake: never Patient Tobacco Use Status: Never used Tobacco Smoked in Last 30 Days: No Use of substances other than those prescribed or required for medical reasons: No Advance Directives: No Advance Directives Information Provided: No Do you have a plan to hurt others: No Plan Patient : No Physical Exam ED Vital Signs: Vital Signs - 24 hr 02/27/24 09:38 02/27/24 10:38 02/27/24 10:56 Temperature 98.8 F Pulse Rate 128 H 115 H Respiratory Rate 20 21 H Blood Pressure 138/85 145/94 H Pulse Oximetry 94 95 95 Oxygen Delivery Method Room Air Room Air Room Air 02/27/24 11:32 Temperature Pulse Rate 100 Respiratory Rate 21 H Blood Pressure Pulse Oximetry Oxygen Delivery Method BMI result Body Mass Index 46.3 Vital signs have been reviewed and appear to be correct. Blood pressure elevated. Heart rate elevated. Respiratory rate normal. Temperature normal. Oxygen saturation normal. Appearance: Alert. Oriented X3. No acute distress. Head: Normal external exam. Normocephalic. Atraumatic. No Gonzales signs noted. No raccoon eyes noted Eyes: PERRLA. EOMI. Conjunctiva and sclera normal. Eyelids normal. ENT: Left TM erythema, Pharynx normal, enlarged tonsil with no exudate patient stated that her normal size of tonsils.. Uvula midline. Moist mucous membranes. No trismus noted. No drooling noted. No muffled voice noted. Neck: Normal inspection. Neck supple. FROM. No adenopathy. Thyroid Normal. No meningeal signs. No neck mass noted. CVS: Normal heart rate and rhythm. Heart sound normal. No murmurs noted. Pulses normal throughout. Respiratory: No respiratory distress. Painless inspiration. Breath sounds normal. No wheezes/rales/rhonchi noted. Chest nontender. No accessory muscle usage noted or decreased air movement noted. Abdomen: Soft and nontender. Bowel sounds normal in all 4 quadrants. No distention noted. No organomegaly noted. No visible injury noted. Back: No CVA tenderness. Full range of motion noted. Skin: Skin warm and dry. Normal skin color. Normal skin turgor. No rashes/lesions/lacerations noted. Extremities: No lower extremity edema. Extremities exhibit normal range of motion. Extremities nontender. Neuro: Oriented X 3. Cranial nerve exam: II-XII are grossly intact No motor deficit. No sensory deficit. Reflexes normal. Course Reevaluation(s) Reevaluation #1: Left otitis media, bronchopneumonia, positive for strep pharyngitis without abscess. Tolerated Z-Leonard in the emergency department. Start the patient on Z-Leonard and prednisone for 5 days. Time: 13:25 Medications Administered Discontinued Medications Generic Name Dose Route Start Last Admin Trade Name Freq PRN Reason Stop Dose Admin Acetaminophen 650 mg 02/27/24 11:20 02/27/24 11:28 Acetaminophen 325 Mg Tablet PO 02/27/24 11:21 650 mg ONCE ONE Administration Albuterol/Ipratropium 3 ml 02/27/24 11:26 02/27/24 11:29 Albuterol/Iprat 2.5/0.5mg 3 Ml Ampul.Neb INHALE 02/27/24 11:27 3 ml ONCE ONE Administration Azithromycin 500 mg 02/27/24 10:25 02/27/24 10:53 Azithromycin 500 Mg Tablet PO 02/27/24 10:26 500 mg ONCE ONE Administration Ceftriaxone Sodium 1 gm 02/27/24 10:25 02/27/24 10:53 Ceftriaxone Sodium 1 Gm Vial IVPUSH 02/27/24 10:26 1 gm ONCE ONE Administration Sodium Chloride 1,000 mls @ 999 mls/hr 02/27/24 10:25 02/27/24 12:34 Ns IV 02/27/24 11:25 Infused .Q1H1M ONE Infusion Ibuprofen 600 mg 02/27/24 12:11 02/27/24 12:21 Ibuprofen 600 Mg Tablet PO 02/27/24 12:12 600 mg ONCE ONE Administration Methylprednisolone Sodium Succinate 125 mg 02/27/24 11:14 02/27/24 11:28 Methylprednisolone Sod Succ 125 Mg/2 Ml Vial IVPUSH 02/27/24 11:15 125 mg ONCE ONE Administration Medical Decision Making Differential Diagnosis Differential Diagnoses: The differential diagnosis associated with the presentation includes (Pneumonia, pneumothorax, pleural effusion, strep pharyngitis, otitis media, sinusitis, electrolyte derangement, severe anemia.) Admission/Observation Consideration of admission/observation: Escalation of care including admission/observation considered Lab Data MDM Lab Attestation statement: I reviewed the patient's lab results. 02/27/24 09:54 02/27/24 09:54 Labs: Lab Results 02/27/24 02/27/24 Range/Units 09:54 10:41 WBC 11.3 H (4.8-10.8) X10*3/uL RBC 4.34 (4.20-5.50) X10*6/uL Hgb 13.2 (12.0-16.0) g/dl Hct 36.9 L (37.0-47.0) % MCV 85.0 (80.0-98.0) fL MCH 30.4 (27.0-33.0) pg MCHC 35.8 H (31.0-35.0) g/dl RDW 12.3 (11.0-16.0) % Plt Count 251 (160-400) X10*3/uL MPV 8.9 L (9.4-12.3) fL Immature Gran % (Auto) 0.4 (0.0-0.4) % Neut % (Auto) 85.9 H (45-73) % Lymph % (Auto) 7.5 L (20-40) % [place] % (Auto) 5.4 (2-11) % Eos % (Auto) 0.4 (0-4) % Baso % (Auto) 0.4 (0-2) % Lymph # (Auto) 0.9 L (1.2-4.9) X10*3/uL [place] # (Auto) 0.6 (0.1-1.2) X10*3/uL Eos # (Auto) 0.0 (0.0-0.4) X10*3/uL Baso # (Auto) 0.0 (0.0-0.2) X10*3/uL Abs Immat Gran (auto) 0.05 H (0.00-0.03) X10*3/uL Absolute Neuts (auto) 9.7 H (2.0-8.3) x10*3/uL Absolute Nucleated RBC 0.000 (0.0-0.012) X10*3/uL Nucleated RBC % (auto) 0.0 (0.0-0.2) /100WBC Sodium 138 (135-145) mmol/L Potassium 3.9 (3.3-5.1) mmol/L Chloride 106 (96-108) mmol/L Carbon Dioxide 23 (22-29) mmol/L Anion Gap 13 (12-20) BUN 11 (9-16) mg/dL Creatinine 0.66 (0.5-1.4) mg/dL Estim Creat Clear Calc 138.6 Estimated GFR > 60 Random Glucose 121 H (60-115) mg/dL Lactic Acid 1.0 (0.5-2.0) mmol/L Calcium 8.9 (8.4-10.2) mg/dL Total Bilirubin 0.7 (0.0-1.0) mg/dL AST 21 (5-31) U/L ALT 11 (0-31) U/L Alkaline Phosphatase 62 (39-117) U/L Total Protein 7.4 (6.5-8.0) g/dL Albumin 4.0 (3.5-5.0) g/dL Influenza Type A (PCR) NEGATIVE (Negative) Influenza Type B (PCR) NEGATIVE (Negative) RSV RNA Qual (PCR) NEGATIVE (Negative) SARS-CoV-2 RNA (RT-PCR) NEGATIVE (Negative) S. pyogenes GrpA JOHANA Positive A (Negative) Independent Interpretation I performed an independent interpretation of an: Plain X-Ray (Chest:Normal lung volumes. New retrocardiac infiltrate likely pneumonic. No pneumothorax or pleural effusion. Heart size normal. No passive venous congestion. No midline shift or tracheal deviation. No acute fracture.) Radiology Impression Discussion of test interpretation with radiology: I have reviewed the radiologist's reading. Discharge Plan Discharge Clinical Impression: Upper respiratory infection, Pneumonia, Acute left otitis media Patient Disposition: Home, Self-Care Instructions: Ear Infection (ED), Pneumonia (ED) Prescriptions: New azithromycin [Zithromax Z-Leonard] 250 mg tablet See Rx Instructions .ROUTE .COMPLEX Qty: 6 0RF Rx Instructions: For 250 mg dose pack: take 500 mg today (day 1), then 250 mg for 4 days (days 2-5) prednisone 20 mg tablet 20 mg PO BID Qty: 8 0RF No Action albuterol sulfate 90 mcg/actuation HFA aerosol inhaler 2 puff inhalation Q4-6H PRN (Reason: shortness of breath or wheezing) Qty: 6.7 0RF Referrals: Kenneth Alba MD [Primary Care Provider] - Stand Alone Forms: Work/School Release Print Language: Comoran
[2024-02-27 10:38] VITALS: O2SAT 95
[2024-02-27 10:38] LABS: Influenza A PCR NEGATIVE (Negative); Influenza B PCR NEGATIVE (Negative); Resp Syncy Virus RNA Qual PCR NEGATIVE (Negative); SARS COV2 PCR INHOUSE NEGATIVE (Negative)
[2024-02-27] MEDS: 0.9 % Sodium Chloride 1,000 ML 999 ML IV (10:42)
[2024-02-27] MEDS: cefTRIAXone sodium 1 GM VIAL IVPUSH (10:53)
[2024-02-27] MEDS: Azithromycin 500 MG TABLET PO (10:53)
[2024-02-27 10:56] VITALS: BP 145/94; PULSE 115; RESP 21; O2SAT 95
[2024-02-27] MEDS: Acetaminophen 325 MG TABLET 650 MG PO (11:28)
[2024-02-27] MEDS: methylPREDNISolone Sod Succ 125 MG/2 ML VIAL IVPUSH (11:28)
[2024-02-27] MEDS: Albuterol/Iprat 2.5/0.5MG 3 ML AMPUL.NEB INHALE (11:29)
[2024-02-27 11:32] VITALS: PULSE 100; RESP 21; O2SAT 97
[2024-02-27] MEDS: Ibuprofen 600 MG TABLET PO (12:21)
--- NOTE | 2024-02-27 12:27 | PC.NURSE ---
Pt's LS clear throughout after neb tx; pt reports no change in diffuse body pain with APAP PO; pt reports 8/10 L ear pain; tympanic membrane bulging on inspection; no redness noted;pt denies muffles hearing or tinnitus; MD made aware; pt medicated per orders
[2024-02-27 13:42] VITALS: BP 123/65; PULSE 118; RESP 18; TEMP 37.4; O2SAT 95
== END 2024-02-27 13:44 | disposition home or self-care (01) ==
PROVIDERS: Emergency Provider Emergency Medicine; PCP Internal Medicine
DX: J10.00 Influenza due to other identified influenza virus with unspecified type of pneumonia (principal); J02.0 Streptococcal pharyngitis; H66.92 Otitis media, unspecified, left ear; R05.9 Cough, unspecified; R06.02 Shortness of breath; Z03.818 Encounter for observation for suspected exposure to other biological agents ruled out
CPT/HCPCS: 0241U; 36415; 71046; 80053; 83605; 85025; 87040; 87651; 93005; 94640; 96361; 96374; 96375; 99284; 99285; J0696; J2919

== ENCOUNTER → 2024-02-27 09:41 | Outpatient (BNV) | payer SELFPAY | PROVIDERS: Emergency Provider Emergency Medicine; PCP Internal Medicine; Visit Provider Internal Medicine Cardiovascular Disease | DX: R00.0 Tachycardia, unspecified (principal); R94.31 Abnormal electrocardiogram [ECG] [EKG] | CPT/HCPCS: 93010 ==

== ENCOUNTER → 2024-02-27 10:00 | Outpatient (BNV) | payer SELFPAY | PROVIDERS: Emergency Provider Emergency Medicine; PCP Internal Medicine; Visit Provider Radiology Diagnostic Radiology | DX: R07.9 Chest pain, unspecified (principal); R05.9 Cough, unspecified | CPT/HCPCS: 71046 ==

== ENCOUNTER 2024-06-09 10:43 | Emergency (ER) | payer BC, SELFPAY ==
--- NOTE | ~2024-06-09 | CT_ITS ---
EXAMINATION: CT ANGIOGRAM CHEST CLINICAL INFORMATION: Severe left-sided pleuritic chest pain. There are syncope. COMPARISON: None available. TECHNIQUE: Multiple axial images were obtained through the chest after the administration of 65 mL of Omnipaque 350 intravenous contrast. Extensive vascular post-processing including two-dimensional and three-dimensional reformatted images were created and reviewed on an independent workstation. SmartPrep technique. This CT examination was performed using dose optimization techniques as appropriate, variously including the following: *Automated exposure control *Adjustment of mA and/or kV according to patient size (this includes techniques or standardized protocols for targeted exams where dose is matched to indication/reason for exam; i.e. extremities or head) *Use of iterative reconstruction technique DLP: 560 mGy centimeter. FINDINGS: Normal IV contrast enhancement of the lumen throughout the main pulmonary artery and its main branches and subsegmental pulmonary branches without gross intraluminal filling defects. Thoracic aorta demonstrates normal caliber and enhancement pattern without intimal flap. No lymphadenopathy, mediastinum, perihilar or axillary. No pericardial effusion. Heart is not enlarged. No complications in the coronary arteries. There is a subtle pulmonary mosaic pattern. No consolidation, pleural effusion or pneumothorax. No bronchiectasis. No honeycombing. Respiratory airways is patent. Small 9 mm pneumatocele in the peripheral left lower lung lobe. Multilevel thoracic spondylosis, mild. No acute fracture or listhesis in the axial skeleton. The sternum is intact. The ribs are intact. The scapula is intact bilaterally. Small bony island right humeral head. The clavicles are intact. Patient's large body habitus. No dominant nodules in the thyroid gland. CT/CT angio chest PE protocol IMPRESSION: No acute pulmonary artery emboli. No aneurysm or dissection, thoracic aorta. No acute airspace disease. No acute rib fracture. Consider small airway disease versus small pulmonary artery disease. Fleischner guidelines were followed. Electronically signed by: Chuck Ryan MD 06/09/2024 01:10 PM EDT
--- NOTE | 2024-06-09 10:48 | ECG_ITS ---
Test Reason : cp Blood Pressure : */* mmHG Vent. Rate : 94 BPM Atrial Rate : 94 BPM P-R Int : 152 ms QRS Dur : 80 ms QT Int : 350 ms P-R-T Axes : 35 43 33 degrees QTcB Int : 437 ms Normal sinus rhythm Normal ECG When compared with ECG of 27-Feb-2024 09:46, No significant change was found Referred By: Generic ED Physician Electronically Signed By: RICHARD HERNANDEZ MD
[2024-06-09 10:51] VITALS: BP 129/105; BP 139/86; PULSE 85; PULSE 90; RESP 16; TEMP 36.4; O2SAT 100; BMI 46.8
--- NOTE | 2024-06-09 10:58 | ED.WEAKNESS ---
HPI - Weakness General Chief complaint: Chest Pain Stated complaint: WEAK,CHEST PAIN/PRESSURE X2HRS, BP 157/105 PER EMS Time Seen by Provider: 06/09/24 10:55 Source: patient and EMS Mode of arrival: EMS Limitations: no limitations History of Present Illness ED Provider: JESSE DIEHL Narrative: 33 yo female with PMH of pneumonia, has IUD in, no recent travel/procedures, no hx of CAD or early fam hx of CAD - she reports after getting kids to school she had abrupt onset central stabbing chest pain that made her feel short of breath, she did feel near syncope on the phone and laid on the ground no LOC as she heard the person on the phone. She checked her HR was 170. She felt very weak and dizzy. Patient is very anxious and hyperventilating. She has been going through life stress right now. No recent URI MD Complaint: generalized weakness (chest pain) Onset (ago): hour(s) (10am today) Duration: intermittent Location: other (chest) Migration: none Severity: severe Quality: sharp Relieving factors: none Exacerbating factors: none Context: other Associated symptoms: other (dizziness, weakness, nausea) Related Data Previous Rx's ?Medication ?Instructions ?Recorded albuterol sulfate 90 mcg/actuation 2 puff inhalation Q4-6H PRN 01/21/22 aerosol inhaler shortness of breath or wheezing #6.7 grams azithromycin 250 mg tablet See Rx Instructions PO .COMPLEX #6 02/27/24 (Zithromax Z-Leonard) tabs prednisone 20 mg tablet 20 mg PO BID #8 tabs 02/27/24 Allergies Allergy/AdvReac Type Severity Reaction Status Date / Time latex [Latex] Allergy Intermediate HIVES Verified 06/09/24 10:57 vancomycin [VANCOMYCIN] Allergy Intermediate ITCHING, Verified 06/09/24 10:57 REDNESS, hives amoxicillin Allergy Unknown nausea and Verified 06/09/24 10:57 vomiting-severe abdominal pain doxylamine [From NYQUIL] Allergy Unknown HIVES Verified 06/09/24 10:57 dextromethorphan Allergy Vomiting Verified 06/09/24 10:57 guaifenesin Allergy Vomiting Verified 06/09/24 10:57 DayQuil Multi-Symptom Allergy Unknown hives Uncoded 05/23/22 10:48 Review of Systems Review of Systems: Constitutional : No Weight loss, No Fever, No Chills ENT/Mouth : No sore throat, No Rhinorrhea Eyes: No Eye Pain, No Swelling Cardiovascular : pos Chest Pain, pos SOB, no Dyspnea on Exertion, No Orthopnea, No Edema, No Palpitations Respiratory : No Cough, No Sputum Gastrointestinal : pos Nausea, No Vomiting, No Diarrhea, No abdominal Pain, No Hematochezia, No Melena Genitourinary : No Dysuria, No Urinary Frequency Musculoskeletal : No joint pain, No Myalgias, No Joint Swelling Skin : No Skin Lesions, No rash Neuro : pos Weakness, No Numbness, No Dizziness, No Headache All other systems reviewed and are negative [facility] Past Medical History Attestation statement: The following information was validated with the patient. Source: old records reviewed Medical History (Updated 06/09/24 @ 14:32 by Shanika Ryan DO) Nephrolithiasis Social History Social History Alcohol intake: never Patient Tobacco Use Status: Never used Tobacco Advance Directives: No Advance Directives Information Provided: Yes Physical Exam Vital Signs: Vital Signs: Last Vital Signs Temp 97.7 F 06/09/24 13:36 Pulse 80 06/09/24 13:36 Resp 17 06/09/24 13:36 BP 121/64 06/09/24 13:36 Pulse Ox 98 06/09/24 13:36 O2 Del Method Room Air 06/09/24 13:36 BMI result Body Mass Index 46.8 Appearance: Alert. Oriented X3. very anxious hyperventilating mild acute distress. Eyes: Pupils equal, round and reactive to light. ENT: Pharynx normal. Neck: Normal inspection. Neck supple. CVS: Normal heart rate and rhythm. Pulses normal. Respiratory: No respiratory distress. Breath sounds normal. Abdomen: Soft and nontender. Skin: Skin warm and dry. Normal skin color. Normal skin turgor. Extremities: No lower extremity edema. No calf ttp Neuro: Oriented X 3. No motor deficit. No sensory deficit. CN2-12 intact Medications Administered Discontinued Medications Generic Name Dose Route Start Last Admin Trade Name Freq PRN Reason Stop Dose Admin Lactated Ringer's 1,000 mls @ 999 mls/hr 06/09/24 11:08 06/09/24 12:48 Lr IV 06/09/24 12:08 Infused .Q1H1M ONE Infusion Iohexol 100 ml 06/09/24 12:27 06/09/24 12:27 Iohexol 350 Mg/Ml 100 Ml Infus..Btl IV 06/09/24 12:28 70 ml ONCE ONE Administration Morphine Sulfate 4 mg 06/09/24 11:08 06/09/24 11:42 Morphine Sulfate 4 Mg/Ml Cartridge IVPUSH 06/09/24 11:09 4 mg ONCE ONE Administration Protocol Ondansetron HCl 4 mg 06/09/24 11:08 06/09/24 11:42 Ondansetron Hcl 4 Mg/2 Ml Vial IVPUSH 06/09/24 11:09 4 mg ONCE ONE Administration Medical Decision Making Medical Decision Making [facility] Narrative: 33 yo female with PMH of pneumonia, has IUD in here with c/o severe chest pain that caused her to nearly faint and she is now very anxious and has pain - it is sharp given her symptoms and degree of pain I am going to obtain labs, troponin x 2, CTA for PE/dissection. I have started on morphine - she has no risk factors known for CAD/VTE/dissection Differential Diagnosis Differential Diagnoses: The differential diagnosis associated with the presentation includes chest pain/VTE/dissection/chest wall pain Admission/Observation Consideration of admission/observation: Escalation of care including admission/observation considered no PE and no dissection trop flat x 2 EKG nonischemic at this time negative work up stable for DC Lab Data [facility] Lab Attestation statement: I reviewed the patient's lab results. 06/09/24 11:27 06/09/24 11:27 Labs: Lab Results 06/09/24 06/09/24 06/09/24 Range/Units 11:27 11:29 13:59 WBC 10.8 (4.8-10.8) X10*3/uL RBC 4.54 (4.20-5.50) X10*6/uL Hgb 13.7 (12.0-16.0) g/dl Hct 39.0 (37.0-47.0) % MCV 85.9 (80.0-98.0) fL MCH 30.2 (27.0-33.0) pg MCHC 35.1 H (31.0-35.0) g/dl RDW 12.3 (11.0-16.0) % Plt Count 329 D (160-400) X10*3/uL MPV 9.2 L (9.4-12.3) fL Immature Gran % (Auto) 0.5 H (0.0-0.4) % Neut % (Auto) 80.8 H (45-73) % Lymph % (Auto) 13.4 L (20-40) % [place] % (Auto) 3.5 (2-11) % Eos % (Auto) 1.3 (0-4) % Baso % (Auto) 0.5 (0-2) % Lymph # (Auto) 1.4 (1.2-4.9) X10*3/uL [place] # (Auto) 0.4 (0.1-1.2) X10*3/uL Eos # (Auto) 0.1 (0.0-0.4) X10*3/uL Baso # (Auto) 0.1 (0.0-0.2) X10*3/uL Abs Immat Gran (auto) 0.05 H (0.00-0.03) X10*3/uL Absolute Neuts (auto) 8.7 H (2.0-8.3) x10*3/uL Absolute Nucleated RBC 0.000 (0.0-0.012) X10*3/uL Nucleated RBC % (auto) 0.0 (0.0-0.2) /100WBC Sodium 140 (135-145) mmol/L Potassium 3.8 (3.3-5.1) mmol/L Chloride 108 (96-108) mmol/L Carbon Dioxide 23 (22-29) mmol/L Anion Gap 13 (12-20) BUN 13 (9-16) mg/dL Creatinine 0.78 (0.5-1.4) mg/dL Estim Creat Clear Calc 122.7 Estimated GFR > 60 Random Glucose 109 (60-115) mg/dL Calcium 9.2 (8.4-10.2) mg/dL Magnesium 1.6 (1.6-2.6) mg/dL Total Bilirubin 0.5 (0.0-1.0) mg/dL Direct Bilirubin 0.2 (0.0-0.5) mg/dL AST 24 (5-31) U/L ALT 20 (0-31) U/L Alkaline Phosphatase 64 (39-117) U/L Troponin I High Sens < 2.7 < 2.7 (<3.5-17.0) ng/L B-Natriuretic Peptide < 10 (<100) pg/mL Total Protein 7.0 (6.5-8.0) g/dL Albumin 4.0 (3.5-5.0) g/dL Lipase 14 (8-78) U/L Beta HCG, Quant < 2 mIU/mL Urine Color Yellow Urine Appearance Clear Urine pH 8.0 (5.0-9.0) Ur Specific [place] 1.010 (1.005-1.025) Urine Protein Negative (Neg-Trace) mg/dL Urine Glucose (UA) Negative (Negative) mg/dL Urine Ketones Negative (Negative) mg/dL Urine Blood Negative (Negative) Urine Nitrite Negative (Negative) Ur Leukocyte Esterase Small (1+) H (Negative) Urine RBC 0-2 (0-2) /HPF Urine WBC 0-5 (0-5) /HPF Ur Squamous Epith Cells 3-5 (0-2) /HPF Urine Bacteria 1+ (None Seen) Hyaline Casts 0-2 (0-2) /LPF Influenza Type A (PCR) NEGATIVE (Negative) Influenza Type B (PCR) NEGATIVE (Negative) RSV RNA Qual (PCR) NEGATIVE (Negative) SARS-CoV-2 RNA (RT-PCR) NEGATIVE (Negative) Independent Interpretation I performed an independent interpretation of an: EKG and CT Scan (no dissection, no PE, no effusion) Interpretation: Rate: 94 Rhythm: NSR [place]: normal Normal P waves. Normal SEB. Normal QRS complex. ST T wave : normal no JASON qTC: 437 prior studies: no acute ischemia The study has been interpreted contemporaneously by me. . Radiology Impression Discussion of test interpretation with radiology: I have reviewed the radiologist's reading. Independent Historian Clinical information obtained from an independent historian. History obtained from or confirmed by: Parent and EMS External Record Review External record reviewed: Outpatient record Discharge Plan Discharge Clinical Impression: Atypical chest pain, Near syncope Patient Disposition: Home, Self-Care Instructions: Chest Pain (ED), Syncope (ED) Additional Instructions: EKG and repeat heart tests are normal labs reassuring CT scan of chest shows no pericardial effusion, no blood clot, no tearing of blood vessels rest and stay hydrated return for any worsening symptoms or concerns. Prescriptions: No Action albuterol sulfate 90 mcg/actuation HFA aerosol inhaler 2 puff inhalation Q4-6H PRN (Reason: shortness of breath or wheezing) Qty: 6.7 0RF azithromycin [Zithromax Z-Leonard] 250 mg tablet See Rx Instructions .ROUTE .COMPLEX Qty: 6 0RF Rx Instructions: For 250 mg dose pack: take 500 mg today (day 1), then 250 mg for 4 days (days 2-5) prednisone 20 mg tablet 20 mg PO BID Qty: 8 0RF Stand Alone Forms: Work/School Release Print Language: Latvian
[2024-06-09 11:34] LABS: MANUAL DIFF FLAG NO
[2024-06-09] MEDS: Lactated Ringers 1,000 ML 999 ML IV (11:39)
[2024-06-09 11:40] LABS: Basophils Absolute Auto 0.1 X10*3/uL (0.0-0.2); Basophils Percent Auto 0.5 % (0-2); Eosinophils Absolute Auto 0.1 X10*3/uL (0.0-0.4); Eosinophils Percent Auto 1.3 % (0-4); Hemoglobin 13.7 g/dl (12.0-16.0); Imm Gran Abs Auto 0.05 X10*3/uL (0.00-0.03); Imm Gran Pct Auto 0.5 % (0.0-0.4); Lymphocytes Absolute Auto 1.4 X10*3/uL (1.2-4.9); Lymphocytes Percent Auto 13.4 % (20-40); Mean Corpuscular HGB Conc 35.1 g/dl (31.0-35.0); Mean Corpuscular Hemoglobin 30.2 pg (27.0-33.0); Mean Corpuscular Volume 85.9 fL (80.0-98.0); Mean Platelet Volume 9.2 fL (9.4-12.3); Monocytes Absolute Auto 0.4 X10*3/uL (0.1-1.2); Monocytes Percent Auto 3.5 % (2-11); Neutrophils Absolute Auto 8.7 x10*3/uL (2.0-8.3); Neutrophils Percent Auto 80.8 % (45-73); Platelet Count 329 X10*3/uL (160-400); Red Blood Count 4.54 X10*6/uL (4.20-5.50); Red Cell Distribution Width 12.3 % (11.0-16.0); White Blood Count 10.8 X10*3/uL (4.8-10.8)
[2024-06-09 11:41] LABS: Appearance Urine Clear; Color Urine Yellow; Glucose Urine UA Negative (Negative); Leukocyte Esterase Urine Small (1+) (Negative); Nitrite Urine Negative (Negative); UMIC TRIGGER UACC YES; Urine Blood Negative (Negative); Urine Ketones Negative (Negative); Urine Protein Negative (Neg-Trace)
[2024-06-09] MEDS: Morphine Sulfate 4 MG/ML CARTRIDGE IVPUSH (11:42)
[2024-06-09] MEDS: ondansetron HCL 4 MG/2 ML VIAL IVPUSH (11:42)
[2024-06-09 11:58] LABS: Bacteria Urine 1+ (None Seen); Hyaline Casts Urine 0-2 /LPF (0-2); RBC Urine 0-2 /HPF (0-2); UACC Culture Trigger YES; WBC Urine 0-5 /HPF (0-5)
[2024-06-09 12:02] LABS: Alanine Aminotransferase 20 U/L (0-31); Alkaline Phosphatase 64 U/L (39-117); Aspartate Amino Transferase 24 U/L (5-31); Bilirubin Direct 0.2 mg/dL (0.0-0.5); Bilirubin Total 0.5 mg/dL (0.0-1.0); Blood Urea Nitrogen 13 mg/dL (9-16); Calcium 9.2 mg/dL (8.4-10.2); Creatinine Clr Calc Pharmacy 122.7; Estimated Glomerular Filt Rate > 60; Glucose Random 109 mg/dL (60-115); Lipase 14 U/L (8-78); Magnesium 1.6 mg/dL (1.6-2.6)
[2024-06-09 12:05] LABS: B Type Natriuretic Peptide < 10 pg/mL (<100)
[2024-06-09 12:11] LABS: Troponin-I High Sensitivity < 2.7 ng/L (<3.5-17.0)
[2024-06-09 12:13] LABS: Anion Gap 13 (12-20); Carbon Dioxide 23 mmol/L (22-29); Chloride 108 mmol/L (96-108); HCG Quantitative < 2 mIU/mL; Potassium 3.8 mmol/L (3.3-5.1); Sodium 140 mmol/L (135-145)
[2024-06-09] MEDS: iohexoL 350 MG/ML 100 ML INFUS..BTL IV (12:27)
[2024-06-09 13:36] VITALS: BP 121/64; PULSE 80; RESP 17; TEMP 36.5; O2SAT 98
[2024-06-09 13:58] LABS: Influenza A PCR NEGATIVE (Negative); Influenza B PCR NEGATIVE (Negative); Resp Syncy Virus RNA Qual PCR NEGATIVE (Negative); SARS COV2 PCR INHOUSE NEGATIVE (Negative)
[2024-06-09 14:28] LABS: Troponin-I High Sensitivity < 2.7 ng/L (<3.5-17.0)
[2024-06-09 14:49] VITALS: BP 148/66; PULSE 90; RESP 22; TEMP 36.7; O2SAT 99
[2024-06-09 15:01] VITALS: BP 148/66; PULSE 90; RESP 22; TEMP 36.7; O2SAT 99
== END 2024-06-09 15:02 | disposition home or self-care (01) ==
PROVIDERS: Emergency Provider Emergency Medicine; PCP Internal Medicine
DX: R07.89 Other chest pain (principal); R55 Syncope and collapse; Z03.818 Encounter for observation for suspected exposure to other biological agents ruled out; R06.02 Shortness of breath; Z79.899 Other long term (current) drug therapy
CPT/HCPCS: 0241U; 36415; 71275; 80048; 80076; 81001; 83690; 83735; 83880; 84484; 84702; 85025; 87086; 93005; 96361; 96374; 96375; 99284; J2270; J2405; J7120; Q9967

== ENCOUNTER → 2024-06-09 10:48 | Outpatient (BNV) | payer BC, SELFPAY | PROVIDERS: Emergency Provider Emergency Medicine; PCP Internal Medicine; Visit Provider Internal Medicine Cardiovascular Disease | DX: R07.9 Chest pain, unspecified (principal) | CPT/HCPCS: 93010 ==

== ENCOUNTER → 2024-06-09 11:08 | Outpatient (BNV) | payer BC, SELFPAY | PROVIDERS: Emergency Provider Emergency Medicine; PCP Internal Medicine; Visit Provider Radiology Diagnostic Radiology | DX: R07.81 Pleurodynia (principal) | CPT/HCPCS: 71275 ==

== ENCOUNTER 2024-07-01 13:55 | Emergency (ER) | payer BC, SELFPAY ==
--- NOTE | ~2024-07-01 | US_ITS ---
CLINICAL HISTORY: upper pain, GB, CBD Exam: Ultrasound of the gallbladder. Comparison: CT April 08, 2022. Findings: No stones or sludge are seen within the gallbladder. No gallbladder wall thickening or pericholecystic fluid. Reported positive sonographic Mcmahon's sign. Common bile duct is within normal limits. No free fluid. Visualized portion of the liver is unremarkable. Impression: 1. Positive sonographic Mcmahon's sign without associated morphologic abnormality. Therefore, this is of questionable clinical significance. This document has been electronically signed by: Malachi Ang MD on 07/01/2024 20:19:09
[2024-07-01 14:12] VITALS: BP 127/68; PULSE 85; RESP 18; TEMP 36.4; O2SAT 99; BMI 46.1
--- NOTE | 2024-07-01 14:12 | ED_ITS ---
HPI - General Adult General Chief complaint: General Medical Stated complaint: Shaking, High Blood Pressure Time Seen by Provider: 07/01/24 17:22 Source: patient Limitations: no limitations History of Present Illness ED Provider: Lavonne Mcghee PA-C HPI narrative: 33-year-old female with a history of morbid obesity presents with multiple complaints. Patient states she had an episode of bilateral hand paresthesia with shakiness and nausea pre arrival. Her symptoms were transient, she is currently asymptomatic. Patient had an episode June 09, she was seen in the emergency department, she had extensive cardiac and pulmonary workup which was negative. Patient has yet to follow up with the primary care provider. Patient states she has developed new symptoms of upper abdominal discomfort. Pain over epigastrium, with radiation to mid back. Eating triggers discomfort and nausea. Patient has had multiple episodes in the past, she has never been assessed. Patient denies history of anxiety and/or panic attacks. Related Data Previous Rx's ?Medication ?Instructions ?Recorded albuterol sulfate 90 mcg/actuation 2 puff inhalation Q4-6H PRN 01/21/22 aerosol inhaler shortness of breath or wheezing #6.7 grams azithromycin 250 mg tablet See Rx Instructions PO .COMPLEX #6 02/27/24 (Zithromax Z-Leonard) tabs prednisone 20 mg tablet 20 mg PO BID #8 tabs 02/27/24 Allergies Allergy/AdvReac Type Severity Reaction Status Date / Time latex [Latex] Allergy Intermediate HIVES Verified 07/01/24 14:15 vancomycin [VANCOMYCIN] Allergy Intermediate ITCHING, Verified 07/01/24 14:15 REDNESS, hives amoxicillin Allergy Unknown nausea and Verified 07/01/24 14:15 vomiting-severe abdominal pain doxylamine [From NYQUIL] Allergy Unknown HIVES Verified 07/01/24 14:15 dextromethorphan Allergy Vomiting Verified 07/01/24 14:15 guaifenesin Allergy Vomiting Verified 07/01/24 14:15 DayQuil Multi-Symptom Allergy Unknown hives Uncoded 05/23/22 10:48 Review of Systems 2 Review of Systems: Yes all other systems are reviewed and are negative Constitutional: Constitutional: Denies fatigue and Denies fever(s) ENT: Denies dizziness Cardiovascular: Cardiovascular: Denies chest pain and Denies dyspnea Respiratory: Respiratory: Denies cough and Denies dyspnea Gastrointestinal: Gastrointestinal: Reports abdominal pain, Reports nausea and Denies vomiting Neurologic: Denies dizziness Endocrine: Endocrine: Denies fatigue [facility] Past Medical History Attestation statement: The following information was validated with the patient. Medical History (Updated 07/01/24 @ 20:39 by LEX Case) Nephrolithiasis Social History Social History Alcohol intake: never Patient Tobacco Use Status: Never used Tobacco Advance Directives: No Advance Directives Information Provided: No Physical Exam ED Vital Signs: Vital Signs - 24 hr 07/01/24 14:12 07/01/24 17:24 07/01/24 18:21 Temperature 97.6 F 97.7 F 98.3 F Pulse Rate 85 86 80 Respiratory Rate 18 18 16 Blood Pressure 127/68 131/85 120/71 Pulse Oximetry 99 100 98 Oxygen Delivery Method Room Air Room Air Room Air 07/01/24 20:00 Temperature 97.9 F Pulse Rate 74 Respiratory Rate 16 Blood Pressure 100/55 L Pulse Oximetry 98 Oxygen Delivery Method Room Air BMI result Body Mass Index 46.1 Const Other: Alert well-appearing Orientation/consciousness: patient oriented x3 Resp Effort & Inspection: normal respiratory effort Cardio Other: Normal peripheral perfusion GI Other: Abdomen is soft, nondistended, obese, mild tenderness epigastric without guarding with deep palpation of the abdomen no Mcmahon's sign Skin Other: Warm dry no rash Neuro General: patient oriented x3, gait normal, no focal motor deficits and CN's II- XI intact bilaterally Psych Other: Cooperative Course Course Course Narrative: This is an RME performed by Bill Calixto CNP: Additional HPI, ROS, PE not included below will be deferred to primary provider. 33 yo female with PMHX of presents to ED due to nausea, shakiness. 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 She checked vitals while at work and was tachy at 137 bpm She states her hands feel numb while in triage. 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 States she was just seen in ED, for the same symptoms without acute findings. She was unable to follow up with PCP due to office not calling back. Denies SOB, vomiting, PE: 81 BPM in triage, 127/68 BP, Plan: EKG, Labs, HCG quant Medications Administered Discontinued Medications Generic Name Dose Route Start Last Admin Trade Name Clari PRN Reason Stop Dose Admin Sodium Chloride 1,000 mls @ 999 mls/hr 07/01/24 18:00 07/01/24 18:08 Ns IV 07/01/24 19:00 999 mls/hr .Q1H1M DAYANA Administration Ketorolac Tromethamine 15 mg 07/01/24 17:54 07/01/24 18:09 Ketorolac Tromethamine 15 Mg/Ml Vial IVPUSH 07/01/24 17:55 15 mg ONCE ONE Administration Ondansetron HCl 4 mg 07/01/24 17:54 07/01/24 18:09 Ondansetron Hcl 4 Mg/2 Ml Vial IVPUSH 07/01/24 17:55 4 mg ONCE ONE Administration Medical Decision Making Medical Decision Making [facility] Narrative: 33-year-old female with a history of morbid obesity presents with multiple complaints. Patient states she had an episode of bilateral hand paresthesia with shakiness and nausea pre arrival. Her symptoms were transient, she is currently asymptomatic. Patient had an episode June 09, she was seen in the emergency department, she had extensive cardiac and pulmonary workup which was negative. Patient has yet to follow up with the primary care provider. Patient states she has developed new symptoms of upper abdominal discomfort. Pain over epigastrium, with radiation to mid back. Eating triggers discomfort and nausea. Patient has had multiple episodes in the past, she has never been assessed. Patient denies history of anxiety and/or panic attacks. Problem: Obesity History: Per patient I have considered the following differential diagnoses: Cholecystitis, biliary colic, gastritis, GERD, pancreatitis, anxiety/panic attack, ACS Plan: Patient's symptoms today in regard to the paresthesia and shakiness are very nonspecific, I question whether she has anxiety, seems consistent with a panic attack. In regard to the abdominal discomfort, given distribution in nature of symptoms, I am considering biliary versus gastric etiology as cause for symptoms. Screening labs were already obtained from triage, all of your LFTs are completely normal, her abdominal exam was completely benign. At best, she may have biliary colic. We will obtain an ultrasound, giving Toradol Zofran and fluid. ACS was considered, unclear why, in addition to screening labs and enzyme and EKG were obtained. I have independently reviewed the following tests: Labs: No leukocytosis, not anemic, no electrolyte abnormality LFTs all normal, troponin negative, not urine not infected EKG: Normal sinus rhythm, rate of 91, no ischemic changes no ectopy QTC 4-5 Ultrasound right upper quadrant:Findings: No stones or sludge are seen within the gallbladder. No gallbladder wall thickening or pericholecystic fluid. Reported positive sonographic Mcmahon's sign. Common bile duct is within normal limits. No free fluid. Visualized portion of the liver is unremarkable. Impression: 1. Positive sonographic Mcmahon's sign without associated morphologic abnormality. Therefore, this is of questionable clinical significance. Lab Data 07/01/24 14:32 07/01/24 14:32 Labs: Lab Results 07/01/24 07/01/24 Range/Units 14:32 18:15 WBC 9.8 (4.8-10.8) X10*3/uL RBC 4.30 (4.20-5.50) X10*6/uL Hgb 13.0 (12.0-16.0) g/dl Hct 36.8 L (37.0-47.0) % MCV 85.6 (80.0-98.0) fL MCH 30.2 (27.0-33.0) pg MCHC 35.3 H (31.0-35.0) g/dl RDW 12.3 (11.0-16.0) % Plt Count 300 (160-400) X10*3/uL MPV 9.5 (9.4-12.3) fL Immature Gran % (Auto) 0.5 H (0.0-0.4) % Neut % (Auto) 80.1 H (45-73) % Lymph % (Auto) 15.1 L (20-40) % Walton % (Auto) 3.3 (2-11) % Eos % (Auto) 0.7 (0-4) % Baso % (Auto) 0.3 (0-2) % Lymph # (Auto) 1.5 (1.2-4.9) X10*3/uL Walton # (Auto) 0.3 (0.1-1.2) X10*3/uL Eos # (Auto) 0.1 (0.0-0.4) X10*3/uL Baso # (Auto) 0.0 (0.0-0.2) X10*3/uL Abs Immat Gran (auto) 0.05 H (0.00-0.03) X10*3/uL Absolute Neuts (auto) 7.9 (2.0-8.3) x10*3/uL Absolute Nucleated RBC 0.000 (0.0-0.012) X10*3/uL Nucleated RBC % (auto) 0.0 (0.0-0.2) /100WBC Sodium 135 (135-145) mmol/L Potassium 3.6 (3.3-5.1) mmol/L Chloride 103 (96-108) mmol/L Carbon Dioxide 24 (22-29) mmol/L Anion Gap 12 (12-20) BUN 20 H (9-16) mg/dL Creatinine 0.75 (0.5-1.4) mg/dL Estim Creat Clear Calc 121.6 Estimated GFR > 60 Random Glucose 132 H (60-115) mg/dL Calcium 9.7 (8.4-10.2) mg/dL Total Bilirubin 0.6 (0.0-1.0) mg/dL AST 26 (5-31) U/L ALT 26 (0-31) U/L Alkaline Phosphatase 56 (39-117) U/L Troponin I High Sens < 2.7 (<3.5-17.0) ng/L Total Protein 7.1 (6.5-8.0) g/dL Albumin 4.2 (3.5-5.0) g/dL TSH 0.61 (0.32-4.0) uIU/mL Beta HCG, Quant < 2 mIU/mL Urine Color Yellow Urine Appearance Clear Urine pH 6.0 (5.0-9.0) Ur Specific [place] 1.020 (1.005-1.025) Urine Protein Negative (Neg-Trace) mg/dL Urine Glucose (UA) Negative (Negative) mg/dL Urine Ketones 40 (Negative) mg/dL Urine Blood Negative (Negative) Urine Nitrite Negative (Negative) Ur Leukocyte Esterase Negative (Negative) Discharge Plan Discharge Clinical Impression: Epigastric abdominal pain Patient Disposition: Home, Self-Care Instructions: Epigastric Pain (ED), GERD (Gastroesophageal Reflux Disease) (ED) Additional Instructions: All of your screening labs including a cardiac enzymes were normal. There was no elevation in your liver function tests. The ultrasound of your upper abdomen was negative. Your symptoms could be secondary to poorly controlled acid reflux. See home care instructions. Avoid eating 3 hours before bed. Eating smaller more frequent meals throughout the day, can also help to curb symptoms. Some common food triggers are mint, anything carbonated, alcohol, caffeine, spicy or acidic food, greasy fatty foods. Be sure to make a follow up appointment with your primary care provider to discuss the next steps. You likely will require endoscopy as an outpatient. Prescriptions: No Action albuterol sulfate 90 mcg/actuation HFA aerosol inhaler 2 puff inhalation Q4-6H PRN (Reason: shortness of breath or wheezing) Qty: 6.7 0RF azithromycin [Zithromax Z-Leonard] 250 mg tablet See Rx Instructions .ROUTE .COMPLEX Qty: 6 0RF Rx Instructions: For 250 mg dose pack: take 500 mg today (day 1), then 250 mg for 4 days (days 2-5) prednisone 20 mg tablet 20 mg PO BID Qty: 8 0RF Stand Alone Forms: Work/School Release Print Language: East Timorese
--- NOTE | 2024-07-01 14:17 | ECG_ITS ---
Test Reason : palpitations Blood Pressure : */* mmHG Vent. Rate : 91 BPM Atrial Rate : 91 BPM P-R Int : 146 ms QRS Dur : 80 ms QT Int : 346 ms P-R-T Axes : 47 47 33 degrees QTcB Int : 425 ms Normal sinus rhythm Normal ECG When compared with ECG of 09-Jun-2024 10:51, No significant change was found Referred By: Ivy Calixto Electronically Signed By: LOKESH DIOP
[2024-07-01 14:37] LABS: MANUAL DIFF FLAG NO
[2024-07-01 14:41] LABS: Basophils Percent Auto 0.3 % (0-2); Eosinophils Absolute Auto 0.1 X10*3/uL (0.0-0.4); Eosinophils Percent Auto 0.7 % (0-4); Hematocrit 36.8 % (37.0-47.0); Imm Gran Abs Auto 0.05 X10*3/uL (0.00-0.03); Imm Gran Pct Auto 0.5 % (0.0-0.4); Lymphocytes Absolute Auto 1.5 X10*3/uL (1.2-4.9); Lymphocytes Percent Auto 15.1 % (20-40); Mean Corpuscular HGB Conc 35.3 g/dl (31.0-35.0); Mean Corpuscular Hemoglobin 30.2 pg (27.0-33.0); Mean Corpuscular Volume 85.6 fL (80.0-98.0); Mean Platelet Volume 9.5 fL (9.4-12.3); Monocytes Absolute Auto 0.3 X10*3/uL (0.1-1.2); Monocytes Percent Auto 3.3 % (2-11); Neutrophils Absolute Auto 7.9 x10*3/uL (2.0-8.3); Neutrophils Percent Auto 80.1 % (45-73); Platelet Count 300 X10*3/uL (160-400); Red Cell Distribution Width 12.3 % (11.0-16.0); White Blood Count 9.8 X10*3/uL (4.8-10.8)
[2024-07-01 15:01] LABS: Alanine Aminotransferase 26 U/L (0-31); Albumin Level 4.2 g/dL (3.5-5.0); Alkaline Phosphatase 56 U/L (39-117); Anion Gap 12 (12-20); Aspartate Amino Transferase 26 U/L (5-31); Bilirubin Total 0.6 mg/dL (0.0-1.0); Blood Urea Nitrogen 20 mg/dL (9-16); Calcium 9.7 mg/dL (8.4-10.2); Carbon Dioxide 24 mmol/L (22-29); Chloride 103 mmol/L (96-108); Creatinine Clr Calc Pharmacy 121.6; Estimated Glomerular Filt Rate > 60; Glucose Random 132 mg/dL (60-115); Potassium 3.6 mmol/L (3.3-5.1); Sodium 135 mmol/L (135-145); Total Protein 7.1 g/dL (6.5-8.0); Troponin-I High Sensitivity < 2.7 ng/L (<3.5-17.0)
[2024-07-01 15:15] LABS: HCG Quantitative < 2 mIU/mL; TSH reflex Free T4 0.61 uIU/mL (0.32-4.0)
[2024-07-01 17:24] VITALS: BP 131/85; PULSE 86; RESP 18; TEMP 36.5; O2SAT 100
--- NOTE | 2024-07-01 17:33 | PC.NURSE ---
Patient is a 33 yo female who presents with intermittent epigastric pain with assoc dull chest left anterior chest pain, dizziness and nausea for the past 3 weeks. Was seen recently at this facility with a negative work-up and discharge. Alert and oriented. Lungs clear bilat. Respirations even and non-labored. Abdomen soft, distended, non-tender with positive bowel sounds. Positive pedal pulses with no edema noted.
[2024-07-01] MEDS: 0.9 % Sodium Chloride 1,000 ML 999 ML IV (18:08)
[2024-07-01] MEDS: Ketorolac Tromethamine 15 MG/ML VIAL IVPUSH (18:09)
[2024-07-01] MEDS: ondansetron HCL 4 MG/2 ML VIAL IVPUSH (18:09)
[2024-07-01 18:21] VITALS: BP 120/71; PULSE 80; RESP 16; TEMP 36.8; O2SAT 98
[2024-07-01 18:23] LABS: Appearance Urine Clear; Color Urine Yellow; Glucose Urine UA Negative (Negative); Leukocyte Esterase Urine Negative (Negative); Nitrite Urine Negative (Negative); Urine Blood Negative (Negative); Urine Ketones 40 mg/dL (Negative); Urine Protein Negative (Neg-Trace)
--- NOTE | 2024-07-01 18:24 | PC.NURSE ---
20g IV access obtained in L-medial AC IVF started pt medicated for pain
[2024-07-01 20:00] VITALS: BP 100/55; PULSE 74; RESP 16; TEMP 36.6; O2SAT 98
[2024-07-01 20:51] VITALS: BP 100/55; PULSE 74; RESP 16; TEMP 36.6; O2SAT 98
== END 2024-07-01 20:52 | disposition home or self-care (01) ==
PROVIDERS: Nurse Practitioner Family; Physician Assistant Medical; Emergency Provider Emergency Medicine; PCP Internal Medicine
DX: R10.13 Epigastric pain (principal); R20.2 Paresthesia of skin; R00.2 Palpitations; Z79.899 Other long term (current) drug therapy
CPT/HCPCS: 36415; 76705; 80053; 81003; 84443; 84484; 84702; 85025; 93005; 96361; 96374; 96375; 99284; 99285; J1885; J2405

== ENCOUNTER → 2024-07-01 14:17 | Outpatient (BNV) | payer BC, SELFPAY | PROVIDERS: Emergency Provider Emergency Medicine; PCP Internal Medicine; Visit Provider Internal Medicine | DX: R00.2 Palpitations (principal) | CPT/HCPCS: 93010 ==

== ENCOUNTER → 2024-07-01 17:52 | Outpatient (BNV) | payer BC, SELFPAY | PROVIDERS: Emergency Provider Emergency Medicine; PCP Internal Medicine; Visit Provider Radiology Diagnostic Radiology | DX: K92.2 Gastrointestinal hemorrhage, unspecified (principal); R10.10 Upper abdominal pain, unspecified | CPT/HCPCS: 76705 ==

== ENCOUNTER → 2024-08-05 13:35 | Outpatient (REF) | payer BC, SELFPAY | LOC: HO.CARD 13:35 | PROVIDERS: PCP Internal Medicine; Visit Provider Physician Assistant | DX: R55 Syncope and collapse (principal) | CPT/HCPCS: 93270 ==

== ENCOUNTER → 2024-08-05 13:38 | Outpatient (BNV) | payer BC, SELFPAY | PROVIDERS: PCP Internal Medicine; Visit Provider Internal Medicine | DX: I49.3 Ventricular premature depolarization (principal) | CPT/HCPCS: 93272 ==

== ENCOUNTER → 2024-09-22 08:59 | Outpatient (REF) | payer BC, SELFPAY ==
--- NOTE | 2024-09-22 09:06 | CA_ITS ---
Transthoracic Echocardiogram Patient (Last, First, Middle): Jasmin Nation, Gender: Female Date of : 1990 Age: 34 Procedure Date: 09/22/2024 Procedure Type: Transthoracic Echocardiogram Location: OP Height: 160.02 cm Weight: 106.14 kg BSA: 2.07 m2 Heart Rate: bpm BP: 102 / 70 mmHg Scientific Artist: TO Referring MD: Kim BURNETT Assembly Department Supervisor: Jan Simmons MD Symptoms: R00.0 TACHY Study Quality: Adequate ECG Rhythm: Sinus Conclusions: - Essentially normal study Findings Left Ventricle Normal left ventricular size, thickness, and systolic function. The visually estimated ejection fraction is between 55-60%. Spectral Doppler is indicative of a normal filling pattern. Right Ventricle Normal right ventricular cavity size and systolic function. Atria Both atria are normal in size. There is no evidence of interatrial shunt. Aortic Valve Normal aortic valve structure and function. There is no aortic valve stenosis. There is no aortic valve regurgitation. Mitral Valve Normal mitral valve structure and function. There is trace mitral valve regurgitation. There is no mitral valve stenosis. Pulmonic Valve The pulmonic valve is likely normal. Tricuspid Valve Normal tricuspid valve structure. There is trace tricuspid valve regurgitation. The right ventricular systolic pressure is normal. The right ventricular systolic pressure is 14 mmHg. Normal right atrial pressure. There is no evidence of pulmonary hypertension. Great Vessels All visible segments of the aorta are normal in size. The pulmonary artery was not well visualized. Venous The inferior vena cava is normal in size and collapses greater than 50% with inspiration. Pericardium/Pleural There is no evidence of pericardial effusion. Measurements 2D Linear Measurements IVSd: 0.80 0.6-0.9/0.6-1.0 cm LVIDd: 5.08 3.9-5.3/4.2-5.9 cm LVIDd Index: 2.45 2.4-3.2/2.2-3.1 cm/m2 LVIDs: 3.27 2.0-3.6 cm LVPWd: 0.66 0.7-1.1 cm LA Diam: 3.80 2.7-3.8/3.0-4.0 cm LAIDs Index: 1.84 1.5-2.3 cm/m2 LV Mass: 154.71 67-162/88-224 g LV Mass Index: 74.74 43-95/49-115 g/m2 LVOT Diam: 2.30 3.0+(-)1.3 cm 2D Systolic Function EF 4C: 56.20 >55% EF 2C: 56.00 >55% EF BiP: 55.90 >55% Mitral Valve MV Pk E: 0.81 MV PK A: 0.47 MV Decel Time: 186.00 E/A: 1.70 E'Lateral: 11.30 E'Medial: 7.18 E/E' Med: 11.20 E/E' Lat: 7.10 PHT: 55.00 MVA PHT: 4.00 Decel Reagan: 4.33 Aortic Valve AoV Pk Elliott: 1.15 AoV Mn Elliott: 0.83 AoV VTI: 0.24 AoV Pk Grad: 5.00 Aov Mn Grad: 3.00 REINALDO Cont.VTI: 3.25 LVOT LVOT Pk Elliott: 0.89 LVOT Mn Elliott: 0.62 LVOT VTI: 0.19 LVOT Pk Grad: 3.00 LVOT Mn Grad: 2.00 LVOT Diam: 2.30 LVOT Area: 4.15 Diastolic Function MV Pk E: 0.81 MV Pk A: 0.47 E/A: 1.70 E'Medial: 7.18 E/E' Med: 11.20 E' Laterial: 11.30 E/E' Lat: 7.10 Right Ventricle TAPSE (mm): 20.40 TVS' Elliott: 9.46 Tricuspid Valve TR Pk Elliott: 1.68 TR Pk Grad: 11.00 RA Press: 3.00 RVSP: 14.00 Great Vessels Aorta Sinus of Valsalva: 3.07 2.0-3.[address] Ridge: 2.33 1.7-3.4 cm Ao Asc: 2.70 2.1-3.4 cm Updated in Other Vendor System with Status of Final Jan Simmons MD electronically signed on 09/23/2024 11:17:52 AM with status of Final
--- NOTE | 2024-09-22 09:08 | CA_ITS ---
Acquisition Time: 2024-09-22 10:25:08 Total Exercise Time: 00:06:00 Test Indications: CHEST PAIN Medications: NONE Protocol: GEORGINA Max HR: 166 BPM 89% of Pred: 185 BPM Max BP: 132/78 mmHG Max Work Load: 7.0 METS Exercise stress test with exercise 6 mins of Georgina Protocol, achieving 89% MPHR, with reports of 8/10 mid chest tightness and SOB, without any arrythmias, with notmotensive response to exercise. Without any EKG changes meeting criteria for ischemia. In recovery, chest tightness gradually improved and SOB resolved. Would recommend stress echo for further evaluation. Test reviewed with Dr. Simmons. Referred By: Kim Ruiz Electronically Signed By: Lon Larson
--- OUTSIDE RECORDS SUMMARY | 2024-09-22 09:19 | XMS_ITS | Clinical Summary ---
Author Organization [facility] Address [address] [place] [id number] Phone Care Team Providers Care Police Patrol Officer Name Role Phone Kenneth Alba DO Primary Care Provider [phone] Allergies Active Allergy Reactions Criticality Noted Date Comments Amoxicillin Shortness Of Breath,Rash High 10/13/2022 abdominal pain Ocferyvpo-Fmr-Vi-Acetami nophen 10/13/2022 Hives Lhpxzxhpvpu-Cw-Samfdmmrs phen 10/13/2022 Hives Vancomycin 10/13/2022 Itching Medications ciprofloxacin HCl (CIPRO) 500 MG tablet Take 1 tablet by mouth 2 (two) times a day. 07/23/2022 Active cyclobenzaprine (FLEXERIL) 10 MG tablet Take 1 tablet by mouth 2 (two) times a day. 08/27/2022 Active erythromycin (ROMYCIN) ophthalmic ointment 07/18/2022 Active Active Problems No known active problems Immunizations Immunization Administration Dates Next Due COVID-19 (Pre-12/15) Pfizer Vaccine, mRNA, PF 03/10/2021,06/06/2020,05/12/2020 Influenza, Unspecified Formulation 12/06/2021 Tdap 06/27/2020 Social History Tobacco Use Types Packs/Day Years Used Date Smoking Tobacco: Never Smokeless Tobacco: Never Tobacco Cessation:Counseling Given: Not Answered Education Answer Date Recorded Are you interested in more education? Not on effie e 10/13/2022 Are you concerned about learning? Not on file 10/13/2022 No 10/13/2022 No 10/13/2022 Digital Access Answer Date Recorded No 10/13/2022 No 10/13/2022 Reliable internet access at home? Not on file 10/13/2022 Device with a working camera? Not on file Comments Unknown Sex and Gender Information Value Date Recorded Sex Assigned at Not on file Legal Sex Female 1:35 PM EDT Gender Identity Not on file Sexual Orientation Not on file Last Filed Vital Signs Vital Sign Reading Time Taken Comments Blood Pressure 134/88 10/13/2022 8:21 AM EDT Pulse 111 10/13/2022 8:21 AM EDT Temperature 36.7 C (98.1 F) 10/13/2022 8:21 AM EDT Respiratory Rate 18 10/13/2022 8:21 AM EDT Oxygen Saturation 98% 10/13/2022 8:21 AM EDT Inhaled Oxygen Concentration - - Weight 122.5 kg (270 lb) 10/13/2022 8:21 AM EDT Height - - Body Mass Index - - Plan of Treatment Health Maintenance Due Date Last Done Comments DEPRESSION SCREENING 2001 HEPATITIS C SCREENING 08/19/2007 HIV ONE-TIME SCREENING (18-6 5 YEARS) 08/19/2007 PAP SMEAR 2010 COVID-19 VACCINE (2023-2 5 season) 2023 03/10/2021, 06/06/2020, 05/12/2020 Adult Td,Tdap Booster 06/27/2030 06/27/2020 SMOKING STATUS SCREENING (On ce After 26 Yrs) Completed 10/13/2022 HEPATITIS A VACCINES Aged Out No long er eligible based on patient's age to complete this topic HIB VACCINES Aged Out No longer eligi ble based on patient's age to complete this topic MENINGOCOCCAL VACCINES (ACWY) Aged Out No longer eligible based on patient's age to complete this topic MENINGOCOCCAL VACCINES (B) Aged Out N o longer eligible based on patient's age to complete this topic PNEUMOCOCCAL VACCINES (0-49 years) Aged Out No longer eligible b ased on patient's age to complete this topic Medical Devices Not on file Insurance Member Subscriber Plan / Payer (Ef fective 2017-Present) Name:EnzoosmanJasmin Relation to Subscriber:Self Name:Jasmin Nation Payer ID:[id number] (NAIC) Group ID:Not on file Type:PPO Address: [address] PPO EPO [facility] [employer] Member Subscriber Plan / Payer (Ef fective 2017-Present) Name:Rios Jasmin Relation to Subscriber:Self Name:Rios Jasmin Payer ID:[id number] (NAIC) Group ID:Not on file Type:PPO Address: [address] PPO EPO [employer] R R Member Subscriber Plan / Payer (Ef fective 2017-Present) Name:Rios Jasmin Relation to Subscriber:Self Name:Rios Jasmin Payer ID:[id number] (NAIC) Group ID:Not on file Type:PPO Address: [address] R R Member Subscriber Plan / Payer (Ef fective 2017-Present) Name:Rios Jasmin Relation to Subscriber:Self Name:Rios Jasmin Payer ID:[id number] (NAIC) Group ID:Not on file Type:PPO Address: [address] [facility] U[employer] Member Subscriber Plan / Payer (Ef fective 2017-Present) Name:RiosBrysonJasmin Relation to Subscriber:Self Name:RiosJasmin Payer ID:[id number] (NAIC) Group ID:Not on file Type:PPO Address: [address] PPO EPO [facility] U[employer] Member Subscriber Plan / Payer (Ef fective 2017-Present) Name:RiosBrysonJasmin Relation to Subscriber:Self Name:Rios Jasmin Payer ID:[id number] (NAIC) Group ID:Not on file Type:PPO Address: [address] PPO EPO Care Teams Police Patrol Officer Relationship Specialty Start Date End Date Kenneth Alba DO [email or web address] PCP - General Internal Medicine 07/02/17 Additional Source Comments The information contained in this document represents components of the legal health record. It is not the complete legal health record.[facility]
== END ==
LOC: HO.CARD 08:59
PROVIDERS: PCP Internal Medicine; Visit Provider Physician Assistant
DX: R00.0 Tachycardia, unspecified (principal); R55 Syncope and collapse
CPT/HCPCS: 93017; 93306

== ENCOUNTER → 2024-09-22 09:08 | Outpatient (BNV) | payer BC, SELFPAY | PROVIDERS: PCP Internal Medicine | DX: R06.02 Shortness of breath (principal); R07.89 Other chest pain | CPT/HCPCS: 93016; 93018; 93320; 93325; 93350 ==

== ENCOUNTER 2024-10-13 08:35 | Outpatient (REF) | payer BC, SELFPAY ==
--- NOTE | 2024-10-13 | EEG_ITS ---
Reason For EEG: Syncopal Episode with questionable seizure activity Medications: No meds History: No past history- pt c/o symptoms of nausea, shakiness which are sudden onset with increased heart rate- 2 weeks pt had symptoms followed by LOC - pt was found in the bathroom with bruise on forehead- event lasted 1.5 minutes- no incontinence- no shaking noted by witness- Cardiac workup still pending Embossing Toolsetter Comments: Photic stimulation: completed Hyperventilation: performed good effort- pt c/o slight dizziness at start of hyperventilation which resolved quickly within 3 seconds Behavioral state: pleasant State of consciousness: awake with brief period of drowsiness Handedness: Right Sedation: No Skull defect: no Description: This is a 16 channel EEG with an EKG lead. Background EEG rhythm is 10 to 12 hertz 5-50 microvolt posteriorly and lower amplitude fast anteriorly. Photic stimulation does not produce any significant driving. Hyperventilation is unremarkable. Cardiac lead does not reveal any significant abnormality. No sharp wave spikes or paroxysmal tendency or asymmetry noted. Impression: Unremarkable EEG. MTDD
--- OUTSIDE RECORDS SUMMARY | 2024-10-13 09:31 | XMS_ITS | Clinical Summary ---
Author Organization [facility] Address [address] [place] [address] Phone Care Team Providers Care Hair And Makeup Designer Name Role Phone Kenneth Alba DO Primary Care Provider [phone] Allergies Active Allergy Reactions Criticality Noted Date Comments Amoxicillin Shortness Of Breath,Rash High 10/13/2022 abdominal pain Xioovvqyu-Grl-Ej-Acetami nophen 10/13/2022 Hives Pzvublmohqu-Vb-Jyyihbbde phen 10/13/2022 Hives Vancomycin 10/13/2022 Itching Medications [...] (NAIC) Group ID:Not on file Type:PPO Address: [address] PPO EPO [facility] U[employer] Member Subscriber Plan / Payer (Ef fective 2017-Present) Name:Rios Jasmin Relation to Subscriber:Self Name:Rios Jasmin Payer ID:[id number] (NAIC) Group ID:Not on file Type:PPO Address: [address] PPO EPO [employer] R R Member Subscriber Plan / Payer (Ef fective 2017-Present) Name:Rios Jasmin Relation to Subscriber:Self Name:Rios Jasmin Payer ID:[id number] (NAIC) Group ID:Not on file Type:PPO Address: [address] R R Member Subscriber Plan / Payer (Ef fective 2017-Present) Name:Rios Jasmin Relation to Subscriber:Self Name:Rios Jasmin Payer ID:[id number] (NAIC) Group ID:Not on file Type:PPO Address: [address] [facility] UMR Member Subscriber Plan / Payer (Ef fective 2017-Present) Name:RiosBrysonJasmin Relation to Subscriber:Self Name:RiosJasmin Payer ID:[id number] (NAIC) Group ID:Not on file Type:PPO Address: [address] PPO EPO [facility] U[employer] Member Subscriber Plan / Payer (Ef fective 2017-Present) Name:RiosBrysonJasmin Relation to Subscriber:Self Name:Rios Jasmin Payer ID:[id number] (NAIC) Group ID:Not on file Type:PPO Address: [address] PPO EPO Care Teams Hair And Makeup Designer Relationship Specialty Start Date End Date Kenneth Alba DO [email or web address] PCP - General Internal Medicine 07/02/17 Additional Source Comments The information contained in this document represents components of the legal health record. It is not the complete legal health record.[facility]
== END 2024-10-13 08:36 | disposition home or self-care (01) ==
LOC: HO.NEURO 08:35
PROVIDERS: PCP Internal Medicine; Visit Provider Physician Assistant
DX: R55 Syncope and collapse (principal)
CPT/HCPCS: 95816

== ENCOUNTER → 2024-10-13 08:45 | Outpatient (BNV) | payer BC, SELFPAY | PROVIDERS: PCP Internal Medicine; Visit Provider Psychiatry & Neurology Neurology | DX: R55 Syncope and collapse (principal) | CPT/HCPCS: 95816 ==

== ENCOUNTER → 2024-10-20 10:52 | Outpatient (REF) | payer BC, SELFPAY ==
--- NOTE | 2024-10-20 10:55 | CA_ITS ---
Acquisition Time: 2024-10-20 11:05:43 Total Exercise Time: 00:06:40 Test Indications: Abnormal Treadmill Test,Palpitations,Syncope Medications: ALBUTEROL INHALER Protocol: GEORGINA Max HR: 171 BPM 92% of Pred: 185 BPM Max BP: 170/68 mmHG Max Work Load: 8.0 METS Exercise stress test with exercise 6 mins 40 secs of Georgina Protocol, achieving 92% MPHR, with reports of 2/10 mid chest tightness that resolved quickly in recovery, with SOB, without any arrythmias, with normotensive response to exercise. Without any EKG changes meeting criteria for ischemia. In recovery, breathing returned to baseline as well. Echo images were obtained by tech at rest and post peak exercise. Definity contrast utilized. Test reviewed with Dr. Phelps. Referred By: Kim Ruiz Electronically Signed By: Lon Larson
--- OUTSIDE RECORDS SUMMARY | 2024-10-20 12:20 | XMS_ITS | Encounter Summary ---
Author Organization [facility] Address [address] [place] [address] Phone Care Team Providers Care Database Specialist Name Role Phone Kenneth Alba DO Primary Care Provider [phone] Kenneth Alba DO Unavailable Reason for Referral * Physical Therapy (Routine) - Closed Specialty Diagnoses / Procedures Referred By Doretha french Referred To Contact Physical Therapy Diagnoses Urinary urgency, high tone pelvic floor syfunction, cystocole midline, urge incontinece System, Provider Not In, [facility] [id number] [place] [address] Phone: tel: Referral ID Status Reason Start Date Expiration Date Visits Re quested Visits Authorized [id number] Closed 08/06/2017 08/06/2018 1 1 Encounter Details Date Type Department Care Team (Latest Contact Info) Description 08/06/2017 Transcribe Orders [facility] [address] [place] [address] Michelle Martinez, SECOND CRUSHER [address] [place] [address] [email or web address] Encounter for rehabilitation (Primary Dx) Social History Tobacco Use Types Packs/Day Years Used Date Smoking Tobacco: Never Assessed Comments Unknown Sex and Gender Information Value Date Recorded Sex Assigned at Not on file Legal Sex Female 1:35 PM EDT Gender Identity Not on file Sexual Orientation Not on file documented as of this encounter Plan of Treatment Scheduled Referrals Name Type Priority Associated Diagnoses Orde r Schedule Ambulatory referral to [facility] Physical Therapy Outpatient Referral Routine Encounter for rehabilitation Ordered: 08/06/2017 documented as of this encounter Visit Diagnoses Diagnosis Encounter for rehabilitation- Primary documented in this encounter Care Teams Database Specialist Relationship Specialty Start Date End Date Kenneth Alba DO [email or web address] PCP - General Internal Medicine 07/02/17 Kenneth Alba DO [address] [place] [address] [email or web address] Insurance Assigned Provider 11/29/22 01/31/23 documented as of this encounter Additional Source Comments The information contained in this document represents components of the legal health record. It is not the complete legal health record.[facility]
--- OUTSIDE RECORDS SUMMARY | 2024-10-20 12:20 | XMS_ITS | Clinical Summary ---
Author Organization [facility] Address [address] [place] [address] Phone Care Team Providers Care Clerical And Office Support Workers Name Role Phone Kenneth Alba DO Primary Care Provider [phone] Allergies Active Allergy Reactions Criticality Noted Date Comments Amoxicillin Shortness Of Breath,Rash High 10/13/2022 abdominal pain Tmllyhcqr-Tkf-Jt-Acetami nophen 10/13/2022 Hives Xbhapwnhlvr-Ud-Xifxvfucz phen 10/13/2022 Hives Vancomycin 10/13/2022 Itching Medications [...] (NAIC) Group ID:Not on file Type:PPO Address: [address] PPO EPO [facility] UMR Member Subscriber Plan / Payer (Ef fective 2017-Present) Name:Rios Jasmin Relation to Subscriber:Self Name:Rios Jasmin Payer ID:[id number] (NAIC) Group ID:Not on file Type:PPO Address: [address] PPO EPO [employer] R R Member Subscriber Plan / Payer (Ef fective 2017-Present) Name:Rios Jasmin Relation to Subscriber:Self Name:Rios Jasmin Payer ID:[id number] (NAIC) Group ID:Not on file Type:PPO Address: [address] R R Member Subscriber Plan / Payer (Ef fective 2017-Present) Name:Rios Jasmin Relation to Subscriber:Self Name:Rios Jasmin Payer ID:[id number] (NAIC) Group ID:Not on file Type:PPO Address: [address] [facility] UMR Member Subscriber Plan / Payer (Ef fective 2017-Present) Name:RiosBrysonJasmin Relation to Subscriber:Self Name:RiosJasmin Payer ID:[id number] (NAIC) Group ID:Not on file Type:PPO Address: [address] PPO EPO [facility] UMR Member Subscriber Plan / Payer (Ef fective 2017-Present) Name:RiosBrysonJasmin Relation to Subscriber:Self Name:Rios Jasmin Payer ID:[id number] (NAIC) Group ID:Not on file Type:PPO Address: [address] PPO EPO Care Teams Clerical And Office Support Workers Relationship Specialty Start Date End Date Kenneth Alba DO [email or web address] PCP - General Internal Medicine 07/02/17 Additional Source Comments The information contained in this document represents components of the legal health record. It is not the complete legal health record.[facility]
== END ==
LOC: HO.CARD 10:52
PROVIDERS: PCP Internal Medicine; Visit Provider Physician Assistant
DX: R94.39 Abnormal result of other cardiovascular function study (principal)
CPT/HCPCS: 93350; Q9957

== ENCOUNTER → 2024-10-20 10:55 | Outpatient (BNV) | payer BC, SELFPAY | PROVIDERS: PCP Internal Medicine | DX: R06.02 Shortness of breath (principal); R94.31 Abnormal electrocardiogram [ECG] [EKG] | CPT/HCPCS: 93016; 93018; 93350; 93352 ==

== ENCOUNTER 2024-11-03 18:45 | Outpatient (REF) | payer BC, SELFPAY ==
--- NOTE | ~2024-11-03 | MR_ITS ---
EXAMINATION: MR BRAIN WITHOUT IV CONTRAST CLINICAL INFORMATION: Reason for Exam-ABSENCE SEIZURE, ATYPICAL. R/O CVA COMPARISON: None available. TECHNIQUE: MRI of the brain was obtained using routine sequences without contrast. FINDINGS: Brain parenchyma: No shift of midline structures. No evidence of acute infarct, parenchymal hemorrhage or mass lesion. On the coronal images, there is a more rounded appearance of the left hippocampus, which suggests incompletely hippocampal inversion. Ventricles/extra-axial spaces:: No hydrocephalus or extra-axial fluid collections. Extracranial structures: Orbits are unremarkable. Paranasal sinuses and mastoid air cells are essentially clear. Arterial flow voids in the skull base are preserved. 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 Electronically signed by: Erica Grace MD 11/04/2024 07:06 AM EDT
--- OUTSIDE RECORDS SUMMARY | 2024-11-03 19:06 | XMS_ITS | Encounter Summary ---
Author Organization [facility] Address [address] [place] [address] Phone Care Team Providers Care Lighting Engineer Name Role Phone Kenneth Alba DO Primary Care Provider [phone] Kenneth Alba DO Unavailable Reason for Referral * Physical Therapy (Routine) - Closed Specialty Diagnoses / Procedures Referred By Doretha french Referred To Contact Physical Therapy Diagnoses Urinary urgency, high tone pelvic floor syfunction, cystocole midline, urge incontinece System, Provider Not In, [facility] [id number] [place] [address] Phone: tel: Referral ID Status Reason Start Date Expiration Date Visits Re quested Visits Authorized [id number] Closed 08/06/2017 08/06/2018 1 1 Encounter Details Date Type Department Care Team (Latest Contact Info) Description 08/06/2017 Transcribe Orders [facility] [address] [place] [address] Michelle Martinez, MANUFACTURING LEAD [address] [place] [phone] [email or web address] Encounter for rehabilitation (Primary Dx) Social [...] Diagnoses Orde r Schedule Ambulatory referral to [facility] Physical Therapy Outpatient Referral Routine Encounter for rehabilitation Ordered: 08/06/2017 documented as of this encounter Visit Diagnoses Diagnosis Encounter for rehabilitation- Primary documented in this encounter Care Teams Lighting Engineer Relationship Specialty Start Date End Date Kenneth Alba DO [email or web address] PCP - General Internal Medicine 07/02/17 Kenneth Alba DO [address] [place] [address] [email or web address] Insurance Assigned Provider 11/29/22 01/31/23 documented as of this encounter Additional Source Comments The information contained in this document represents components of the legal health record. It is not the complete legal health record.[facility]
--- OUTSIDE RECORDS SUMMARY | 2024-11-03 19:06 | XMS_ITS | Clinical Summary ---
Author Organization [facility] Address [address] [place] [address] Phone Care Team Providers Care Pollution Control Engineer Name Role Phone Kenneth Alba DO Primary Care Provider [phone] Allergies Active Allergy Reactions Criticality Noted Date Comments Amoxicillin Shortness Of Breath,Rash High 10/13/2022 abdominal pain Vtkbvnqqk-Mee-Iy-Acetami nophen 10/13/2022 Hives Pggiuzjzyki-Pt-Vezdismal phen 10/13/2022 Hives Vancomycin 10/13/2022 Itching Medications [...] (18-6 5 YEARS) 08/19/2007 PAP SMEAR 2010 INFLUENZA VACCINE (#1) 2024 12/06/2021 COVID-19 VACCINE (2024-2 6 season) 2024 03/10/2021, 06/06/2020, 05/12/2020 Adult Td,Tdap Booster 06/27/2030 [...] topic Medical Devices Not on file Insurance [facility] UMR Member Subscriber Plan / Payer (Ef fective 2017-Present) Name:Rios Jasmin Relation to Subscriber:Self Name:Rios Jasmin Payer ID:[id number] (NAIC) Group ID:Not on file Type:PPO Address: [address] PPO EPO [employer] Member Subscriber Plan / Payer (Ef fective 2017-Present) Name:Jasmin Nation Relation to Subscriber:Self Name:Jasmin Nation Payer ID:[id number] (NAIC) Group ID:Not on file Type:PPO Address: [address] PPO EPO [facility] Member Subscriber Plan / Payer (Ef fective 2017-Present) Name:Rios Jasmin Relation to Subscriber:Self Name:Rios Jasmin Payer ID:[id number] (NAIC) Group ID:Not on file Type:PPO Address: [address] R R Member Subscriber Plan / Payer (Ef fective 2017-Present) Name:Jasmin Nation Relation to Subscriber:Self Name:Jasmin Nation Payer ID:[id number] (NAIC) Group ID:Not on file Type:PPO Address: [address] [facility] UMR Member Subscriber Plan / Payer (Ef fective 2017-Present) Name:EnzoosmanJasmin Relation to Subscriber:Self Name:RiosJasmin Payer ID:[id number] (NAIC) Group ID:Not on file Type:PPO Address: [address] PPO EPO [facility] UMR Member Subscriber Plan / Payer (Ef fective 2017-Present) Name:Rios Jasmin Relation to Subscriber:Self Name:Rios Jasmin Payer ID:[id number] (NAIC) Group ID:Not on file Type:PPO Address: [address] PPO EPO Care Teams Pollution Control Engineer Relationship Specialty Start Date End Date Anjali Kenneth DO [email or web address] PCP - General Internal Medicine 07/02/17 Additional Source Comments The information contained in this document represents components of the legal health record. It is not the complete legal health record.[facility]
== END 2024-11-03 18:46 | disposition home or self-care (01) ==
LOC: HO.MRI 18:45
PROVIDERS: PCP Internal Medicine; Visit Provider Physician Assistant
DX: G40.A09 Absence epileptic syndrome, not intractable, without status epilepticus (principal)
CPT/HCPCS: 70551

== ENCOUNTER → 2024-11-03 19:00 | Outpatient (BNV) | payer BC, SELFPAY | PROVIDERS: PCP Internal Medicine; Visit Provider Radiology Body Imaging | DX: G40.A09 Absence epileptic syndrome, not intractable, without status epilepticus (principal) | CPT/HCPCS: 70551 ==

== ENCOUNTER 2024-11-24 10:07 | Outpatient (AMB) | payer BC, SELFPAY ==
--- OUTSIDE RECORDS SUMMARY | 2024-11-21 09:30 | XMS_ITS | Encounter Summary ---
Author Organization [facility] Address [address] [place] [address] Phone Care Team Providers Care Fresh Foods Clerk Name Role Phone Kenneth Alba Primary Care Provider [phone] Reason for Visit * Reason Comments Insect Bite Pt got stung by bees 3 days ago on her left ankle and left knee. She has swelling, redness, pain, blistering, burning and itching. Encounter Details Date Type Department Care Team (Late st Contact Info) Description 11/21/2024 9:30 AM EDT Office Visit [facility] at [address] [address] Caitlyn Arzate, CONTROL CABINET ASSEMBLER [address] [place] [address] [email or web address] Bee sting reaction, accidental or unintentional, initial encounter (Primary Dx) Social History Tobacco Use Types Packs/Day Years Used Date Smoking Tobacco: Never Smokeless Tobacco: Never Education Answer Date Recorded Are you interested in more education? Not on effie e 10/13/2022 Are you concerned about learning? Not on file 10/13/2022 No 10/13/2022 No 10/13/2022 Digital Access Answer Date Recorded No 10/13/2022 No 10/13/2022 Reliable internet access at home? Not on file 10/13/2022 Device with a working camera? Not on file Comments No Sex and Gender Information Value Date Recorded Sex Assigned at Not on file Legal Sex Female 1:35 PM EDT Gender Identity Not on file Sexual Orientation Not on file documented as of this encounter Last Filed Vital Signs Vital Sign Reading Time Taken Comments Blood Pressure 122/84 11/21/2024 9:27 AM EDT Pulse 76 11/21/2024 9:27 AM EDT Temperature 36.9 C (98.5 F) 11/21/2024 9:27 AM EDT Respiratory Rate 16 11/21/2024 9:27 AM EDT Oxygen Saturation 97% 11/21/2024 9:27 AM EDT Inhaled Oxygen Concentration - - Weight 100.2 kg (221 lb) 11/21/2024 9:27 AM EDT Height - - Body Mass Index - - documented in this encounter Patient Instructions * Attachments The following attachments cannot be sent through Care Everywhere. * Insect Stings and Bites (Syrian) documented in this encounter Progress Notes * Caitlyn Arzate CNP - 11/21/2024 9:30 AM EDT Images from the original note were not included. Subjective: Patient ID: Jasmin Nation is a 34 y.o. female. 44-year-old female presents with persistent swelling of the inside of the left ankle and top of left knee status post bee stings. Patient states she was mowing the lawn and she got stung at least once in the ankle and knee. Patient has history of seasonal allergies and takes Zyrtec on a regular basis. She did try some Benadryl which did not help at all. Areas are red and painful despite the use of ice. Review of Systems Constitutional: Negative for chills, diaphoresis, fatigue and fever. HENT: Negative for sore throat and trouble swallowing. Respiratory: Negative for cough, shortness of breath and wheezing. Cardiovascular: Negative for chest pain. Allergic/Immunologic: Negative for immunocompromised state. Neurological: Negative for dizziness. Skin: Positive for persistent rash (over sites bee stings). Musculoskeletal: Negative for joint pain and myalgias. Vitals: 11/21/24926 BP: 122/84 BP Location: Left arm Patient Position: Sitting Cuff Size: Large Pulse: 76 Resp: 16 Temp: 36.9 ??C (98.5 ??F) TempSrc: Temporal SpO2: 97% Weight: 100.2 kg (221 lb) Objective: Physical Exam Vitals and nursing note reviewed. Constitutional: General: She is not in acute distress. Appearance: Normal appearance. She is obese. She is not ill-appearing, toxic- appearing or diaphoretic. HENT: Head: Normocephalic and atraumatic. Pulmonary: Effort: Pulmonary effort is normal. Skin: General: Skin is warm and dry. Findings: Erythema present. No abrasion, abscess, acne, bruising, burn, ecchymosis, signs of injury, laceration, lesion, petechiae, rash or wound. Comments: Minimal swelling/warmth Neurological: Mental Status: She is alert. No results found for this visit on 11/21/24. Procedure: Procedures Assessment/Plan: Diagnosis Plan 1. Bee sting reaction, accidental or unintentional, initial encounter Assessment and Plan: 34-year-old female with PMH: Eczema, gestational DM and obesity who is up-to-date with Tdap vaccine06/27/2020 presents with swollen, warm bee sting bites on the left ankle and left knee Occurred while she was mowing the lawn 3 days ago and she has been using Benadryl which has not been helpful, she takes Zyrtec on a regular basis Has tried ice periodically throughout the day use with no relief No fever, chills or sweats Streaking or systemic symptoms Exam is consistent with localized reaction to bee sting-will cover with methylprednisolone and encourage continued Zyrtec, leg elevation and ice administration Evidence of cellulitis Patient is aware and agrees with plan of care documented in this encounter Plan of Treatment Not on file documented as of this encounter Visit Diagnoses Diagnosis Bee sting reaction, accidental or unintentional, initial encounter- Primary documented in this encounter Care Teams Fresh Foods Clerk Relationship Specialty Start Date End Date Kenneth Alba DO PCP - General Internal Medicine 07/02/17 documented as of this encounter Additional Source Comments The information contained in this document represents components of the legal health record. It is not the complete legal health record.[facility]
--- NOTE | 2024-11-24 10:08 | MHC.OFFVIS ---
Vital Signs 11/24/24 10:16 Height 5 ft 3 in Weight 220 lb BMI 39.0 BP 124/86 Blood Pressure Location Rt brachial Position Sitting Respiration 16 Pulse 83 Pulse Source Pulse Oximeter Pulse Oximetry (%) 99 Oxygen Delivery Method Room Air Intake Visit Reasons: absence SZ atipical Integrated Logistics Support Manager Required: No Allergies latex (Latex) Allergy (Intermediate, Verified 11/24/24 10:16) HIVES vancomycin (VANCOMYCIN) Allergy (Intermediate, Verified 11/24/24 10:16) ITCHING, REDNESS, hives amoxicillin Allergy (Unknown, Verified 11/24/24 10:16) nausea and vomiting-severe abdominal pain doxylamine (From NYQUIL) Allergy (Unknown, Verified 11/24/24 10:16) HIVES dextromethorphan Allergy (Verified 11/24/24 10:16) Vomiting guaifenesin Allergy (Verified 11/24/24 10:16) Vomiting DayQuil Multi-Symptom Allergy (Unknown, Uncoded 11/24/24 10:16) hives HPI Comments Details: Jasmin is a 34-year-old female patient with a past medical history of tachycardia who is presenting to the clinic today upon referral from primary care for episodes of syncope. Jasmin tells me today that since May she has been experiencing some dizziness and syncope episodes accompanied by tachycardia and drops in blood pressure. Her 1st episode occurred in May when she was found on the floor in the morning by her youngest son. She has no recollection of how or why she fell. When she awoke, she was tachycardic and felt ill. She had dizziness and palpitations. She was brought to the emergency room where her cardiac workup was normal. She has since had a cardiac stress test and Holter monitor. Her cardiac workup outpatient has also been unrevealing. She also had 1 other distinct episode in September while on vacation with her family. She had awoken at approximately 05:30 in the morning. Her mother heard a thud and found Jasmin on the floor. Jasmin had attempted to go to the bathroom but has no recollection of doing so. She awoke feeling tachycardic and dizzy but was not somnolent or confused, had no urinary incontinence, or had not bitten her tongue. She continues to have episodes of dizziness and palpitations. When she has palpitations she does note that she has checked her blood pressure and has a low blood pressure. Her dizziness episodes are occurring episodically on a near daily basis. She also mentioned that she was having some staring episodes and associated loss of awareness. These staring episodes and loss of awareness episodes had actually started early in 2024. She had brought them up to her primary care provider who had mentioned at that time the possibility of seizure. These episodes are also occurring intermittently. They last only a few seconds but she generally loses gaps in time and can not recall events or people in her environment when the staring happens. She has otherwise not noticed any blood on her pillow, tongue biting, urinary incontinence during sleep, abnormal behaviors, tonic-clonic movements, myoclonic jerking, profound lonnie-vu events, she also denies any uprisign sensations in her stomach. She does mentioned in history of headaches. She has severe headaches predominantly to the left side of her head that occur on average twice per month associated with light sensitivity but without any nausea, dizziness, or any visual auras. She does have a family history of migraine. She has not been treated for migraine in the past. She typically takes Tylenol and rests as-needed which works for acute therapy. She denies any history of severe illness as a child, traumatic , premature , difficulties in school, or any developmental delays. She does not have a family history of seizure. Prior workup: Routine EEG 10/13/2024 Description: This is a 16 channel EEG with an EKG lead. Background EEG rhythm is 10 to 12 hertz 5-50 microvolt posteriorly and lower amplitude fast anteriorly. Photic stimulation does not produce any significant driving. Hyperventilation is unremarkable. Cardiac lead does not reveal any significant abnormality. No sharp wave spikes or paroxysmal tendency or asymmetry noted. Impression: Unremarkable EEG. 11/03/2024 MR BRAIN WITHOUT IV CONTRAST CLINICAL INFORMATION: Reason for Exam-ABSENCE SEIZURE, ATYPICAL. R/O CVA COMPARISON: None available. TECHNIQUE: MRI of the brain was obtained using routine sequences without contrast. FINDINGS: Brain parenchyma: No shift of midline structures. No evidence of acute infarct, parenchymal hemorrhage or mass lesion. On the coronal images, there is a more rounded appearance of the left hippocampus, which suggests incompletely hippocampal inversion. Ventricles/extra-axial spaces:: No hydrocephalus or extra-axial fluid collections. Extracranial structures: Orbits are unremarkable. Paranasal sinuses and mastoid air cells are essentially clear. Arterial flow voids in the skull base are preserved. 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 [facility] Medical History (Updated 11/24/24 @ 10:59 by Gaviota Fernandes CNP) Absence seizure, atypical Nephrolithiasis Social History Alcohol intake: never Patient Tobacco Use Status: Never used Tobacco Review of Systems Const All systems reviewed & are unremarkable except as noted in HPI and below Physical Exam Const General: cooperative, healthy appearing, comfortable and no acute distress Nutritional Appearance: well nourished Orientation/consciousness: patient oriented x3 Limitations: no limitations HEENT Head: Yes normal to inspection and Yes normocephalic Eyes General: appearance normal, both eyes and all related structures Visual Dolan: normal visual dolan by confrontation Alignment and Position: alignment normal Periorbital: periorbital findings normal Eyelids: Yes eyelids normal Conjunctivae: conjunctivae normal Sclerae: sclerae normal Neck Neck: Yes normal visual inspection and Yes full ROM General: Yes no CVA tenderness Back/Spine/Pelvis Back: no CVA tenderness Cervical Spine: normal cervical lordosis Thoracic/Lumbar Spine: thoracic and lumbar spine normal to inspection Neuro General: patient oriented x3 and deep tendon reflexes 2+ bilaterally Cranial nerves: Yes CN's II-XII intact bilaterally and Yes Facial sensation intact/muscles of mastication intact Cognition (Neuro): normal cognition Gait exam (Neuro): Normal gait present Motor exam (neuro): 5/5 motor strength present throughout and no tremor noted Sensory Exam: double simultaneous stimulation for sensation normal Romberg Test: Negative Pupils: Normal pupillary reactivity/response: bilateral Psych Appearance: grossly normal Mental Status: mental status grossly normal Speech and movement: Normal speech and movement present and Clear speech present Affect: normal affect Attitude: cooperative Thought process: Normal thought process present Thought content: Normal thought content present Insight: Good insight present (Psych) Judgement: Good judgement present (Psych) Assessment & Plan Assessment & Plan (1) Syncope: Code(s): R55 - Syncope and collapse Category: Medical Plan: . (2) Staring episodes: Code(s): R40.4 - Transient alteration of awareness Category: Medical Plan: . (3) Dizziness: Code(s): R42 - Dizziness and giddiness Category: Medical Plan: . Tania Castellanos is a 34-year-old female patient with a past medical history of tachycardia who is presenting to the clinic today upon referral from primary care for episodes of syncope, dizziness, tachycardia, and some episodes of staring as well as loss of awareness. 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 This finding can sometimes be associated with epilepsy. I would like to obtain a longer EEG study on her. I will order a 72 hour ambulatory EEG in efforts to capture some of her symptoms while being monitored. I did advise that she keep a diary of her symptoms as well in efforts to assess for patterns or triggers. I will have her follow up in 6 weeks after she has her study to make further medical decisions. In the meantime. She was educated on signs and symptoms of seizure and when to seek medical attention. -72 hour ambulatory EEG -follow up after study in approximately 6 weeks Orders: Orders EEG ambulatory Today R40.4 - Transient alteration of awareness, R42 - Dizziness and giddiness, R55 - Syncope and collapse Coding Level of Care Code New Pt Level 4 (15944) Diagnoses Syncope R55 Staring episodes R40.4 Dizziness R42
[2024-11-24 10:16] VITALS: BP 124/86; PULSE 83; RESP 16; O2SAT 99; BMI 39.0
--- OUTSIDE RECORDS SUMMARY | 2024-11-24 11:32 | XMS_ITS | Clinical Summary ---
Author Organization [facility] Address [address] [place] [phone] Phone Care Team Providers Care Ruching Machine Operator Name Role Phone Kenneth Alba Primary Care Provider Allergies Active Allergy Reactions Criticality Noted Date Comments Amoxicillin Shortness Of Breath,Rash High 10/13/2022 abdominal pain Wbncpufqs-Kpd-Gu-Acetami nophen 10/13/2022 Hives Latex Hives 11/21/2024 Wivqstgitff-Fo-Fcgclpada phen 10/13/2022 Hives Vancomycin 10/13/2022 Itching Medications escitalopram oxalate (LEXAPRO) 5 MG tablet Take 1 tablet by mouth every morning. 11/15/19 25 Active LORazepam (ATIVAN) 0.5 MG tablet TAKE 1 TABLET BY MOUTH THREE TIMES DAILY FOR 5 DAYS NEEDED 11/12/19 25 Active ondansetron (ZOFRAN-ODT) 8 MG disintegrating tablet 11/19/19 25 Active WEGOVY 0.5 mg/0.5 mL subcutaneous injection INJECT 0.5 MG SUBCUTANEOUS EVERY WEEK 10/04/19 25 Active methylPREDNISolone (MEDROL DOSEPACK) 4 mg tablet follow package directions 21 tablet 11/22/19 25 Active ciprofloxacin HCl (CIPRO) 500 MG tablet Take 1 tablet by mouth 2 (two) times a day. 07/24/19 23 025 Discontin ued(No longer taking) cyclobenzaprine (FLEXERIL) 10 MG tablet Take 1 tablet by mouth 2 (two) times a day. 08/28/19 23 025 Discontin ued(No longer taking) erythromycin (ROMYCIN) ophthalmic ointment 07/19/19 025 Discontin ued(No longer taking) Active Problems Problem Noted Date Diagnosed Date Eczema 11/21/2024 Gestational diabetes mellitus (GDM) 11/21/2024 Obesity 11/21/2024 depression 11/21/2024 Overview (11/21/2024): ? H/O in second Encounters Date Type Department Care Team Description 11/21/2024 9:30 AM EDT Office Visit [facility] at [address] [address] Caitlyn Arzate CNP Bee sting reaction, accidental or unintentional, initial encounter (Primary Dx) from Last 3 Months Immunizations Immunization Administration Dates Next Due COVID-19 [...] SCREENING (On ce After 26 Yrs) Completed 11/21/2024 HEPATITIS A VACCINES Aged Out No long [...] topic Medical Devices Not on file Insurance [employer] [address] [place] [address] [facility] [place] [address] [place] [address] R [facility] [facility] [employer] Member Subscriber Plan / Payer (Ef fective 2017-Present) Name:Jasmin Nation Relation to Subscriber:Self Name:EnzoosmanJasmin Payer ID:[id number] (NAIC) Group ID:Not on file Type:PPO Address: [address] [place] [address] [facility] Care Teams Ruching Machine Operator Relationship Specialty Start Date End Date Kenneth Alba DO [email or web address] PCP - General Internal Medicine 07/02/17 Additional Source Comments The information contained in this document represents components of the legal health record. It is not the complete legal health record.[facility]
--- OUTSIDE RECORDS SUMMARY | 2024-11-24 11:32 | XMS_ITS | Encounter Summary ---
Author Organization [facility] Address [address] [place] [phone] Phone Care Team Providers Care Inker Machine Name Role Phone Kenneth Alba DO Primary Care Provider [phone] Kenneth Alba DO Unavailable Reason for Referral * Physical Therapy (Routine) - Closed Specialty Diagnoses / Procedures Referred By Doretha french Referred To Contact Physical Therapy Diagnoses Urinary urgency, high tone pelvic floor syfunction, cystocole midline, urge incontinece System, Provider Not In, [facility] [id number] [place] [phone] Phone: tel: Referral ID Status Reason Start Date Expiration Date Visits Re quested Visits Authorized [id number] Closed 08/06/2017 08/06/2018 1 1 Encounter Details Date Type Department Care Team (Latest Contact Info) Description 08/06/2017 Transcribe Orders [facility] [address] [place] [address] Michelle Martinez, SHUTTLE VAN DRIVER [address] [place] [phone] [email or web address] Encounter for rehabilitation (Primary Dx) Social [...] Diagnoses Orde r Schedule Ambulatory referral to [facility] Physical Therapy Outpatient Referral Routine Encounter for rehabilitation Ordered: 08/06/2017 documented as of this encounter Visit Diagnoses Diagnosis Encounter for rehabilitation- Primary documented in this encounter Care Teams Inker Machine Relationship Specialty Start Date End Date Kenneth Alba DO [email or web address] PCP - General Internal Medicine 07/02/17 Kenneth Alba DO [address] [place] [address] [email or web address] Insurance Assigned Provider 11/29/22 01/31/23 documented as of this encounter Additional Source Comments The information contained in this document represents components of the legal health record. It is not the complete legal health record.[facility]
== END 2024-11-24 10:46 | disposition home or self-care (01) ==
LOC: HO.HSM 10:08
PROVIDERS: PCP Internal Medicine; Visit Provider Nurse Practitioner
DX: R55 Syncope and collapse (principal); R40.4 Transient alteration of awareness; R42 Dizziness and giddiness
CPT/HCPCS: 99204

== ENCOUNTER 2024-11-28 04:39 | Emergency (ER) | payer BC, SELFPAY ==
[2024-11-28 04:42] VITALS: BP 126/75; PULSE 95; RESP 18; TEMP 37; O2SAT 99; BMI 37.5
--- NOTE | 2024-11-28 05:01 | ED_ITS ---
HPI - General Adult General Chief complaint: Allergic Reaction Stated complaint: Swollen face, bilateral leg hives Time Seen by Provider: 11/28/24 04:51 Source: patient Limitations: no limitations History of Present Illness ED Provider: Lavonne Mcghee PA-C HPI narrative: 34-year-old female with a extensive allergy profile, presents with a allergic reaction. Patient states she woke this morning with diffuse urticaria over buttocks, bilateral lower extremities, and face. Associated facial swelling and scratchy throat. Denies wheezing, dysphagia, odynophagia, dyspnea or active GI symptoms. Denies new food, new medication or body products. Patient states she is currently painting in her home, not sure if the patient has a latex in it. Related Data Home Medications ?Medication ?Instructions ?Recorded ?Confirmed albuterol sulfate 90 mcg/actuation 2 puff inhalation Q 6H PRN 11/24/24 aerosol inhaler (Ventolin HFA) cetirizine 10 mg capsule (Zyrtec) 10 mg PO DAILY PRN 1 Previous Rx's ?Medication ?Instructions ?Recorded epinephrine 0.3 mg/0.3 mL 0.3 mg (0.3 mL) IM Q10M PRN 11/28/24 injection, auto-injector (EpiPen hypersensitivity reac tion #2 ea 2-Leonard) prednisone 10 mg tablets in a dose 10 mg PO DIRECTE D #48 ea 11/28/24 pack Allergies Allergy/AdvReac Type Severity Reaction Status Date / Time latex (Latex) Allergy Intermediate HIVES Verified 11/28/24 04:45 vancomycin (VANCOMYCIN) Allergy Intermediate ITCHING, Verified 11/28/24 04:45 REDNESS, hives amoxicillin Allergy Unknown nausea and Verified 11/28/24 04:45 vomiting-severe abdominal pain doxylamine (From NYQUIL) Allergy Unknown HIVES Verified 11/28/24 04:45 cephalexin Allergy Flushing Verified 11/28/24 04:45 dextromethorphan Allergy Vomiting Verified 11/28/24 04:45 guaifenesin Allergy Vomiting Verified 11/28/24 04:45 DayQuil Multi-Symptom Allergy Unknown hives Uncoded 11/28/24 04:45 Review of Systems Review of Systems: Yes all other systems are reviewed and are negative Constitutional: Constitutional: Denies fatigue and Denies fever(s) ENT: Denies dysphagia, Denies lip swelling, Denies odynophagia, Reports sore throat, Denies throat swelling and Denies tongue swelling Cardiovascular: Cardiovascular: Denies chest pain and Denies dyspnea Respiratory: Respiratory: Denies dyspnea, Denies stridor and Denies wheezing Gastrointestinal: Gastrointestinal: Denies dysphagia, Denies diarrhea, Denies nausea, Denies odynophagia and Denies vomiting Integumentary/Breasts: Skin/Breast: Reports pruritus and Reports rash Endocrine: Endocrine: Denies fatigue Allergic/Immunologic: Allergic/Immunologic: Denies lip swelling, Denies throat swelling, Denies tongue swelling and Denies wheezing [facility] Past Medical History Attestation statement: The following information was validated with the patient. Medical History (Updated 11/28/24 @ 05:11 by LEX Case) Absence seizure, atypical Nephrolithiasis Social History Social History Alcohol intake: never Patient Tobacco Use Status: Never used Tobacco Smoked in Last 30 Days: No Use of substances other than those prescribed or required for medical reasons: Yes Substance Use Type: Marijuana Substance Use Frequency: Occasionally Advance Directives: No Advance Directives Information Provided: No Patient : No Physical Exam ED Vital Signs: Vital Signs - 24 hr 11/28/24 04:42 11/28/24 05:07 11/28/24 05:43 Temperature 98.6 F 98.0 F Pulse Rate 95 84 82 Respiratory Rate 18 17 Blood Pressure 126/75 142/93 H 128/67 Pulse Oximetry 99 96 Oxygen Delivery Method Room Air Room Air BMI result Body Mass Index 37.5 Const Other: Alert appears uncomfortable Orientation/consciousness: patient oriented x3 HENMT Other: Subtle facial swelling, no angioedema of tongue or lips, uvula midline, it is not edematous Eyes Other: Upper and lower lids swollen bilaterally Resp Other: No stridor, lungs clear no wheezing Cardio Other: Normal peripheral perfusion Skin Other: Scattered urticaria of varying sizes over upper extremities lower extremities face neck Neuro General: patient oriented x3, gait normal, no focal motor deficits and CN's II- XI intact bilaterally Psych Other: Cooperative Course Reevaluation(s) Reevaluation #1: Symptoms improving, she can leave by 8:00 a.m. if there was no progression of reaction Time: 05:59 Medications Administered Generic Name Dose Route Start Last Admin Trade Name Clari PRN Reason Stop Dose Admin Sodium Chloride 1,000 mls @ 999 mls/hr 11/28/24 05:00 11/28/24 05:08 Ns IV 11/28/24 06:00 999 mls/hr .Q1H1M DAYANA Administration Discontinued Medications Generic Name Dose Route Start Last Admin Trade Name Clari PRN Reason Stop Dose Admin Diphenhydramine HCl 50 mg 11/28/24 04:49 11/28/24 04:56 Diphenhydramine Hcl 50 Mg/Ml Vial IVPUSH 11/28/24 04:50 50 mg ONCE ONE Administration Epinephrine 0.3 mg 11/28/24 05:00 11/28/24 05:07 Epinephrine 1 Mg/Ml Vial IM 11/28/24 05:41 0.3 mg Q20M DAYANA Administration Famotidine 20 mg 11/28/24 04:49 11/28/24 04:56 Famotidine/Pf 20 Mg/2 Ml Vial IVPUSH 11/28/24 04:50 20 mg ONCE ONE Administration Methylprednisolone Sodium Succinate 60 mg 11/28/24 04:49 11/28/24 04:56 Methylprednisolone Sod Succ 125 Mg/2 Ml Vial IVPUSH 11/28/24 04:50 60 mg ONCE ONE Administration Ondansetron HCl 4 mg 11/28/24 05:32 11/28/24 05:34 Ondansetron Hcl 4 Mg/2 Ml Vial IVPUSH 11/28/24 05:33 4 mg ONCE ONE Administration Medical Decision Making Medical Decision Making MDM Narrative: 34-year-old female with a extensive allergy profile, presents with a allergic reaction. Patient states she woke this morning with diffuse urticaria over buttocks, bilateral lower extremities, and face. Associated facial swelling and scratchy throat. Denies wheezing, dysphagia, odynophagia, dyspnea or active GI symptoms. Denies new food, new medication or body products. Patient states she is currently painting in her home, not sure if the patient has a latex in it. Problem: Extensive allergy profile History: Per patient I have considered the following differential diagnoses: Anaphylaxis, angioedema, allergic reaction, urticaria Plan: Patient here with a allergic reaction, I suspect the paint may have Latex and it. We will be treating with the epinephrine, Solu-Medrol, Benadryl, famotidine and fluid. We will continue to monitor the patient for the next 3 hours for progression of her reaction. No indication for labs or imaging at this time. Differential Diagnosis Differential Diagnoses: The differential diagnosis associated with the presentation includes See medical decision-making Admission/Observation Consideration of admission/observation: Escalation of care including admissi on/observation considered Not applicable Discharge Plan Discharge Clinical Impression: Allergic reaction, Urticaria Patient Disposition: Home, Self-Care Instructions: Urticaria (ED), General Allergic Reaction (ED) Additional Instructions: You were treated for an allergic reaction. It is suspicious that the paint you are using at home may have latex in it. Take the steroid taper as directed you do not require any steroid until tomorrow. Familiarize herself with the use of the EpiPen. If you develop a similar reaction, administer the injection to yourself, then seek medical attention immediately. Prescriptions: New epinephrine [EpiPen 2-Leonard] 0.3 mg/0.3 mL auto-injector 0.3 mg IM Q10M PRN (Reason: hypersensitivity reaction) Qty: 2 0RF Rx Instructions: for 3 doses prednisone 10 mg tablets,dose pack 10 mg PO DIRECTED Qty: 48 0RF Rx Instructions: see taper instructions No Action albuterol sulfate [Ventolin HFA] 90 mcg/actuation HFA aerosol inhaler 2 puff inhalation Q6H PRN Zyrtec 10 mg capsule 10 mg PO DAILY PRN Stand Alone Forms: Work/School Release Print Language: Luxembourgish
[2024-11-28 05:07] VITALS: BP 142/93; PULSE 84
--- NOTE | 2024-11-28 05:11 | PC.NURSE ---
Iv placed, medicated per apr, ordered and medication verified with Charge nurse Carol and RN Brittany.
--- OUTSIDE RECORDS SUMMARY | 2024-11-28 05:19 | XMS_ITS | Encounter Summary ---
Author Organization [facility] Address [address] [place] [phone] Phone Care Team Providers Care Food Broker Name Role Phone Kenneth Alba DO Primary Care Provider [phone] Kenneth Alba DO Unavailable Reason for Referral * Physical Therapy (Routine) - Closed Specialty Diagnoses / Procedures Referred By Doretha french Referred To Contact Physical Therapy Diagnoses Urinary urgency, high tone pelvic floor syfunction, cystocole midline, urge incontinece System, Provider Not In, [facility] [id number] [place] [phone] Phone: tel: Referral ID Status Reason Start Date Expiration Date Visits Re quested Visits Authorized [id number] Closed 08/06/2017 08/06/2018 1 1 Encounter Details Date Type Department Care Team (Latest Contact Info) Description 08/06/2017 Transcribe Orders [facility] [address] [place] [address] Michelle Martinez, PUPPY WALKER [address] [place] [phone] [email or web address] Encounter for rehabilitation (Primary Dx) Social History [...] Diagnoses Orde r Schedule Ambulatory referral to [facility] Physical Therapy Outpatient Referral Routine Encounter for rehabilitation Ordered: 08/06/2017 documented as of this encounter Visit Diagnoses Diagnosis Encounter for rehabilitation- Primary documented in this encounter Care Teams Food Broker Relationship Specialty Start Date End Date Kenneth Alba DO [email or web address] PCP - General Internal Medicine 07/02/17 Kenneth Alba DO [address] [place] [address] [email or web address] Insurance Assigned Provider 11/29/22 01/31/23 documented as of this encounter Additional Source Comments The information contained in this document represents components of the legal health record. It is not the complete legal health record.[facility]
--- OUTSIDE RECORDS SUMMARY | 2024-11-28 05:19 | XMS_ITS | Clinical Summary ---
Author Organization [facility] Address [address] [place] [phone] Phone Care Team Providers Care Automatic Punch Press Operator Name Role Phone Kenneth Alba Primary Care Provider [phone] Allergies Active Allergy Reactions Criticality Noted Date Comments Amoxicillin Shortness Of Breath,Rash High 10/13/2022 abdominal pain Thftrwqcb-Akm-Ba-Acetami nophen 10/13/2022 Hives Latex Hives 11/21/2024 Ypwxkhomuwv-Nb-Miccxmxtg phen 10/13/2022 Hives Vancomycin 10/13/2022 Itching Medications [...] Office Visit [facility] [address] [address] Caitlyn Arzate CNP Bee sting reaction, accidental [...] Medical Devices Not on file Insurance [employer] [address] [place] [address] [facility] [place] [address] [place] [address] R [facility] UMR [facility] UMR Member Subscriber Plan / Payer (Ef fective 2017-Present) Name:Jasmin Nation Relation to Subscriber:Self Name:EnzoosmanJasmin Payer ID:[id number] (NAIC) Group ID:Not on file Type:PPO Address: [address] [place] [place] [address] [facility] Care Teams Automatic Punch Press Operator Relationship Specialty Start Date End Date Kenneth Alba DO [email or web address] PCP - General Internal Medicine 07/02/17 Additional Source Comments The information contained in this document represents components of the legal health record. It is not the complete legal health record.[facility]
--- NOTE | 2024-11-28 05:20 | PC.NURSE ---
Pt placed bedside monitor, O2 being monitored. no respiratory distress.
--- NOTE | 2024-11-28 05:37 | PC.NURSE ---
medicated for nausea.
[2024-11-28 05:43] VITALS: BP 128/67; PULSE 82; RESP 17; TEMP 36.7; O2SAT 96
--- NOTE | 2024-11-28 05:44 | PC.NURSE ---
provider into reassess pt, pt symptoms have improved.
--- NOTE | 2024-11-28 06:20 | PC.NURSE ---
Iv removed, reviewed discharge instructions with pt, pt verbalized understanding, no respiratory distress upon discharge, pt had a steady gait.
[2024-11-28 06:22] VITALS: BP 118/57; PULSE 57; RESP 16; TEMP 36.1; O2SAT 99
== END 2024-11-28 06:23 | disposition home or self-care (01) ==
PROVIDERS: Emergency Provider Emergency Medicine; PCP Internal Medicine
DX: L50.0 Allergic urticaria (principal)
CPT/HCPCS: 96361; 96372; 96374; 96375; 99284; J0165; J1200; J1308; J2405; J2919

== ENCOUNTER 2024-12-07 10:03 | Outpatient (REF) | payer BC, SELFPAY ==
--- OUTSIDE RECORDS SUMMARY | 2024-12-07 11:49 | XMS_ITS | Encounter Summary ---
Author Organization [facility] Address [address] [place] [phone] Phone Care Team Providers Care It Network Administrator Name Role Phone Kenneth Alba DO Primary Care Provider [phone] Kenneth Alba DO Unavailable Reason for Referral * Physical Therapy (Routine) - Closed Specialty Diagnoses / Procedures Referred By Doretha french Referred To Contact Physical Therapy Diagnoses Urinary urgency, high tone pelvic floor syfunction, cystocole midline, urge incontinece System, Provider Not In, [facility] [id number] [place] [phone] Phone: tel: Referral ID Status Reason Start Date Expiration Date Visits Re quested Visits Authorized [id number] Closed 08/06/2017 08/06/2018 1 1 Encounter Details Date Type Department Care Team (Latest Contact Info) Description 08/06/2017 Transcribe Orders [facility] [address] [place] [address] Michelle Martinez, INDUCTION MACHINE OPERATOR [address] [place] [phone] [email or web address] Encounter for rehabilitation (Primary Dx) Social [...] Diagnoses Orde r Schedule Ambulatory referral to [facility] Physical Therapy Outpatient Referral Routine Encounter for rehabilitation Ordered: 08/06/2017 documented as of this encounter Visit Diagnoses Diagnosis Encounter for rehabilitation- Primary documented in this encounter Care Teams It Network Administrator Relationship Specialty Start Date End Date Kenneth Alba DO [email or web address] PCP - General Internal Medicine 07/02/17 Kenneth Alba DO [address] [place] [address] [email or web address] Insurance Assigned Provider 11/29/22 01/31/23 documented as of this encounter Additional Source Comments The information contained in this document represents components of the legal health record. It is not the complete legal health record.[facility]
--- OUTSIDE RECORDS SUMMARY | 2024-12-07 11:49 | XMS_ITS | Encounter Summary ---
Author Organization [facility] Address [address] [place] [phone] Care Team Providers Care Shuttlecock Assembler Name Role Phone Unavailable Primary Care Provider Unavailabl e Encounter Details Date Type Department Care Team (Late st Contact Info) Description 12/02/2024 Lab [facility] Neurodiagn[facility] [address] [place] [phone] Transient alteration of awareness; Syncope and collapse; Dizziness and giddiness Social History Tobacco Use Types Packs/Day Years Used Date Smoking Tobacco: Never Assessed Comments Unknown Sex and Gender Information Value Date Recorded Sex Assigned at Not on file Legal Sex Female 10:22 AM EDT Gender Identity Not on file Sexual Orientation Not on file documented as of this encounter Plan of Treatment Upcoming Encounters Date Type Department Care Team (Late st Contact Info) Description 12/20/2024 10:00 AM EDT Appointment [facility] [address] [place] [phone] 12/21/2024 11:00 AM EDT Appointment [facility] [address] [place] [phone] 12/22/2024 11:00 AM EDT Appointment [facility] [address] [place] [phone] 12/23/2024 11:00 AM EDT Appointment [facility] [address] [place] [phone] documented as of this encounter Visit Diagnoses Diagnosis Transient alteration of awareness Syncope and collapse Dizziness and giddiness documented in this encounter Orders Neurology Count Last Ordered Date First Orde red Date CONTINUOUS EEG 1 12/01/2024 documented in this encounter
--- OUTSIDE RECORDS SUMMARY | 2024-12-07 11:49 | XMS_ITS | Encounter Summary ---
Author Organization [facility] Address [address] [place] [phone] Care Team Providers Care Grocery Clerk Name Role Phone Unavailable Primary Care Provider Unavailabl e Encounter Details Date Type Department Care Team (Late st Contact Info) Description 12/06/2024 Lab [facility] [address] [place] [phone] Transient alteration of awareness; Syncope and collapse; [...] AM EDT Appointment [facility] [address] [place] [phone] 12/21/2024 11:00 AM EDT Appointment [facility] [address] [place] [phone] 12/22/2024 11:00 AM EDT Appointment [facility] [address] [place] [phone] 12/23/2024 11:00 AM EDT Appointment [facility] [address] [place] [phone] documented as of this encounter Visit Diagnoses Diagnosis Transient alteration of awareness Syncope and collapse Dizziness and giddiness documented in this encounter Orders Neurology Count Last Ordered Date First Orde red Date CONTINUOUS EEG 1 12/03/2024 documented in this encounter
--- OUTSIDE RECORDS SUMMARY | 2024-12-07 11:49 | XMS_ITS | Encounter Summary ---
Author Organization [facility] Address [id number] [place] [phone] Care Team Providers Care Tour Consultant Name Role Phone Unavailable Primary Care Provider Unavailabl e Encounter Details Date Type Department Care Team (Late st Contact Info) Description 12/05/2024 Lab Neurodiagn[facility] [address] [place] [phone] Transient alteration of awareness; Syncope and collapse; [...] Info) Description 12/20/2024 10:00 AM EDT Appointment [facility] [address] [place] [phone] 12/21/2024 11:00 AM EDT Appointment [facility] [address] [place] [phone] 12/22/2024 11:00 AM EDT Appointment [facility] [address] [place] [phone] 12/23/2024 11:00 AM EDT Appointment [facility] [address] [place] [phone] documented as of this encounter Visit Diagnoses Diagnosis Transient alteration of awareness Syncope and collapse Dizziness and giddiness documented in this encounter Orders Neurology Count Last Ordered Date First Orde red Date CONTINUOUS EEG 1 12/03/2024 documented in this encounter
--- OUTSIDE RECORDS SUMMARY | 2024-12-07 11:49 | XMS_ITS | Clinical Summary ---
Author Organization [facility] Address [address] [place] [phone] Phone Care Team Providers Care Enterprise Sales Executive Name Role Phone Unavailable Primary Care Provider Unavailabl e Encounters Date Type Department Care Team Description 12/06/2024 [facility] Neurodiagnostic [address] [place] [phone] Transient alteration of awareness; Syncope and collapse; Dizziness and giddiness 12/05/2024 [facility] Neurodiagn[facility] [address] [place] [phone] Transient alteration of awareness; Syncope and collapse; Dizziness and giddiness 12/02/2024 [facility] [address] [place] [phone] Transient alteration of awareness; Syncope and collapse; Dizziness and giddiness 12/01/2024 [facility] [address] [place] [phone] Transient alteration of awareness; Syncope and collapse; Dizziness and giddiness from Last 3 Months Social History Tobacco Use Types Packs/Day Years Used Date Smoking Tobacco: Never Assessed Comments Unknown Sex and Gender Information Value Date Recorded Sex Assigned at Not on file Legal Sex Female 10:22 AM EDT Gender Identity Not on file Sexual Orientation Not on file Plan of Treatment Upcoming Encounters Date Type Department Care Team (Late st Contact Info) Description 12/20/2024 10:00 AM EDT Appointment [facility] Neurodiagnostic [address] [place] [phone] 12/21/2024 11:00 AM EDT Appointment [facility] Neurodiagn[facility] [address] [place] [phone] 12/22/2024 11:00 AM EDT Appointment [facility] Neurodiagnostic [address] [place] [phone] 12/23/2024 11:00 AM EDT Appointment [facility] [address] [place] [phone] Health Maintenance Due Date Last Done Comments DTaP,Tdap,and Td Vaccines (1 - Tdap) 2008 Hepatitis B Vaccines (1 of 3 - 19+ 3-dose series) 2008 Cervical Cancer Screening: P ap Smear 2010 HPV Vaccines (1 - 3-dose SCD M series) 2016 Depression Screening 02/24/2024 COVID-19 Vaccine (1 - 2023-2 5 season) 2024 Influenza Vaccine (#1) 2024 HIV Screening 11/30/2024 Hepatitis C Screening 11/30/2024 Social Influencers of Health Screening 11/30/2024 RSV Immunization Adult Patie nts (1 - 1-dose 75+ series) 2064 HIB Vaccines Aged Out No longer eligi ble based on patient's age to complete this topic Hepatitis A Vaccines Aged Out No long er eligible based on patient's age to complete this topic IPV Vaccines Aged Out No longer eligi ble based on patient's age to complete this topic MMR Vaccines Aged Out No longer eligi ble based on patient's age to complete this topic Meningococcal ACWY Vaccine Aged Out N o longer eligible based on patient's age to complete this topic Meningococcal B Vaccine Aged Out No l onger eligible based on patient's age to complete this topic Pneumococcal Vaccine: Pediat rics (0 to 5 Years) and At-Risk Patients (6 to 49 Years) Aged Out No longer eligible b ased on patient's age to complete this topic RSV Immunization Patients Un chava 20 months Aged Out No longer eligible b ased on patient's age to complete this topic Varicella Vaccines Aged Out No longer eligible based on patient's age to complete this topic Insurance [facility]
--- OUTSIDE RECORDS SUMMARY | 2024-12-07 11:49 | XMS_ITS | Encounter Summary ---
Author Organization [facility] Address [address] [place] [phone] Care Team Providers Care Funeral Planner Name Role Phone Unavailable Primary Care Provider Unavailabl e Encounter Details Date Type Department Care Team (Late st Contact Info) Description 12/01/2024 Lab [facility] Neurodiagnostic [address] [place] [phone] Transient alteration of awareness; Syncope and collapse; [...] Info) Description 12/20/2024 10:00 AM EDT Appointment [facility] Neurodiagnostic [address] [place] [phone] 12/21/2024 11:00 AM EDT Appointment [facility] Neurodiagnostic [address] [place] [phone] 12/22/2024 11:00 AM EDT Appointment [facility] Neurodiagn[facility] [address] [place] [phone] 12/23/2024 11:00 AM EDT Appointment [facility]diagn[facility] [address] [place] [phone] documented as of this encounter Visit Diagnoses Diagnosis Transient alteration of awareness Syncope and collapse Dizziness and giddiness documented in this encounter Orders Neurology Count Last Ordered Date First Orde red Date CONTINUOUS EEG 1 12/01/2024 documented in this encounter
[2024-12-07 13:05] LABS: MANUAL DIFF FLAG NO
[2024-12-07 13:17] LABS: Hematocrit 41.2 % (37.0-47.0); Hemoglobin 13.8 g/dl (12.0-16.0); Imm Gran Abs Auto 0.05 X10*3/uL (0.00-0.03); Imm Gran Pct Auto 0.4 % (0.0-0.4); Lymphocytes Absolute Auto 4.6 X10*3/uL (1.2-4.9); Mean Corpuscular HGB Conc 33.5 g/dl (31.0-35.0); Mean Corpuscular Hemoglobin 30.0 pg (27.0-33.0); Mean Corpuscular Volume 89.6 fL (80.0-98.0); NRBC Abs Auto 0.000 X10*3/uL (0.0-0.012); NRBC Pct Auto 0.0 /100WBC (0.0-0.2); Platelet Count 332 X10*3/uL (160-400); Red Blood Count 4.60 X10*6/uL (4.20-5.50); White Blood Count 13.9 X10*3/uL (4.8-10.8)
[2024-12-07 14:19] LABS: Hemoglobin A1C 109.7972 umol/L; Total Hemoglobin (HGBA1C) 3489.3760 umol/L
[2024-12-07 14:24] LABS: Folate 6.3 ng/mL (> or = 4.0); Vitamin B12 446 pg/mL (200-900)
[2024-12-07 14:29] LABS: Ferritin 205 ng/mL (10-122); Iron 107 mcg/dL (30-160); Magnesium 2.1 mg/dL (1.6-2.6); Percent Iron Saturation 41 % (15-50); Total Iron Binding Capacity 258 mcg/dL (228-428); Unsaturated Iron Binding 151 ug/dL
== END 2024-12-07 10:04 | disposition home or self-care (01) ==
LOC: HO.MANLDS 10:03
PROVIDERS: Visit Provider Physician Assistant
DX: Z13.1 Encounter for screening for diabetes mellitus (principal); R00.2 Palpitations; R10.84 Generalized abdominal pain
CPT/HCPCS: 36415; 82306; 82607; 82728; 82746; 83036; 83540; 83735; 84100; 84443; 85025; 85652; 86140

== ENCOUNTER 2025-01-31 08:24 | Outpatient (AMB) | payer BC, SELFPAY ==
--- NOTE | 2025-01-31 08:42 | A.OFFVIS_ITS ---
Vital Signs 01/31/25 08:50 Height 5 ft 3 in Weight 205 lb BMI 36.3 BP 118/84 Blood Pressure Location Rt brachial Position Sitting Respiration 16 Pulse 78 Pulse Source Pulse Oximeter Pulse Oximetry (%) 99 Oxygen Delivery Method Room Air Intake Visit Reasons: 6 weeks Market Research Interviewer Required: No Accompanied by: Mother Allergies latex (Latex) Allergy (Intermediate, Verified 01/31/25 08:51) HIVES vancomycin (VANCOMYCIN) Allergy (Intermediate, Verified 01/31/25 08:51) ITCHING, REDNESS, hives amoxicillin Allergy (Unknown, Verified 01/31/25 08:51) nausea and vomiting-severe abdominal pain doxylamine (From NYQUIL) Allergy (Unknown, Verified 01/31/25 08:51) HIVES cephalexin Allergy (Verified 01/31/25 08:51) Flushing dextromethorphan Allergy (Verified 01/31/25 08:51) Vomiting guaifenesin Allergy (Verified 01/31/25 08:51) Vomiting DayQuil Multi-Symptom Allergy (Unknown, Uncoded 11/28/24 04:45) hives HPI Comments Details: Jasmin is a 34-year-old female patient with a past medical history of tachycardia, constipation, kidney stones, and asthma who is presenting to the clinic today for a follow up visit regarding syncopal episodes. Jasmin explained of the last visit together that she has been having episodes of dizziness and has had occasional syncopal episodes accompanied by tachycardia and drops in blood pressure. Her 1st episode occurred in May when she was found on the floor in the morning by her youngest son. She has no recollection of how or why she fell. When she awoke, she was tachycardic and felt ill. She had dizziness and palpitations. She was brought to the emergency room where her cardiac workup was normal. She has since had a cardiac stress test and Holter monitor. Her cardiac workup outpatient has also been unrevealing. She also had 1 other distinct episode in September while on vacation with her family. She had awoken at approximately 05:30 in the morning. Her mother heard a thud and found Jasmin on the floor. Jasmin had attempted to go to the bathroom but has no recollection of doing so. She awoke feeling tachycardic and dizzy but was not somnolent or confused, had no urinary incontinence, or had not bitten her tongue. She continues to have episodes of dizziness and palpitations. When she has palpitations she does note that she has checked her blood pressure and has a low blood pressure. Her dizziness episodes are occurring episodically on a near daily basis. She has also been having some staring episodes and associated loss of awareness. These staring episodes and loss of awareness episodes had actually started early in 2024. She had brought them up to her primary care provider who had mentioned at that time the possibility of seizure. These episodes are also occurring intermittently. They last only a few seconds but she generally loses gaps in time and can not recall events or people in her environment when the staring happens. She has otherwise not noticed any blood on her pillow, tongue biting, urinary incontinence during sleep, abnormal behaviors, tonic-clonic movements, myoclonic jerking, profound lonnie-vu events, she also denies any uprisign sensations in her stomach. She does also have headaches. She has severe headaches predominantly to the left side of her head that occur on average twice per month associated with light sensitivity but without any nausea, dizziness, or any visual auras. She does have a family history of migraine. She has not been treated for migraine in the past. She typically takes Tylenol and rests as-needed which works for acute therapy. She denies any history of severe illness as a child, traumatic , premature , difficulties in school, or any developmental delays. She does not have a family history of seizure. At the time of our last visit, I ordered a 72 hour ambulatory EEG. This EEG was connected on 12/20/2024 and there was a notable sharp wave to the left temporal area consistent with her MRI findings. Prior workup: Routine EEG 10/13/2024 Description: This is a 16 channel EEG with an EKG lead. Background EEG rhythm is 10 to 12 hertz 5-50 microvolt posteriorly and lower amplitude fast anteriorly. Photic stimulation does not produce any significant driving. Hyperventilation is unremarkable. Cardiac lead does not reveal any significant abnormality. No sharp wave spikes or paroxysmal tendency or asymmetry noted. Impression: Unremarkable EEG. 11/03/2024 MR BRAIN WITHOUT IV CONTRAST CLINICAL INFORMATION: Reason for Exam-ABSENCE SEIZURE, ATYPICAL. R/O CVA COMPARISON: None available. TECHNIQUE: MRI of the brain was obtained using routine sequences without contrast. FINDINGS: Brain parenchyma: No shift of midline structures. No evidence of acute infarct, parenchymal hemorrhage or mass lesion. On the coronal images, there is a more rounded appearance of the left hippocampus, which suggests incompletely hippocampal inversion. Ventricles/extra-axial spaces:: No hydrocephalus or extra-axial fluid collections. Extracranial structures: Orbits are unremarkable. Paranasal sinuses and mastoid air cells are essentially clear. Arterial flow voids in the skull base are preserved. 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 [facility] Medical History (Updated 11/29/24 @ 00:00 by Background Daemon) Absence seizure, atypical Nephrolithiasis Social History Alcohol intake: never Patient Tobacco Use Status: Never used Tobacco Substance Use Type: Marijuana Review of Systems Const All systems reviewed & are unremarkable except as noted in HPI and below Physical Exam Vital Signs: Last Vital Signs Pulse 78 01/31/25 08:50 Resp 16 01/31/25 08:50 BP 118/84 01/31/25 08:50 Pulse Ox 99 01/31/25 08:50 Oxygen Delivery Method Room Air 01/31/25 08:50 BMI result Body Mass Index 36.3 Const General: cooperative, healthy appearing, comfortable and no acute distress Nutritional Appearance: well nourished Orientation/consciousness: patient oriented x3 Limitations: no limitations HEENT Head: Yes normal to inspection and Yes normocephalic Eyes General: appearance normal, both eyes and all related structures Visual Damon: normal visual damon by confrontation Alignment and Position: alignment normal Periorbital: periorbital findings normal Eyelids: Yes eyelids normal Conjunctivae: conjunctivae normal Sclerae: sclerae normal Neck Neck: Yes normal visual inspection and Yes full ROM General: Yes no CVA tenderness Back/Spine/Pelvis Back: no CVA tenderness Cervical Spine: normal cervical lordosis Thoracic/Lumbar Spine: thoracic and lumbar spine normal to inspection Neuro General: patient oriented x3 and deep tendon reflexes 2+ bilaterally Cranial nerves: Yes CN's II-XII intact bilaterally and Yes Facial sensation intact/muscles of mastication intact Cognition (Neuro): normal cognition Gait exam (Neuro): Normal gait present Motor exam (neuro): 5/5 motor strength present throughout and no tremor noted Sensory Exam: double simultaneous stimulation for sensation normal Romberg Test: Negative Pupils: Normal pupillary reactivity/response: bilateral Psych Appearance: grossly normal Mental Status: mental status grossly normal Speech and movement: Normal speech and movement present and Clear speech present Affect: normal affect Attitude: cooperative Thought process: Normal thought process present Thought content: Normal thought content present Insight: Good insight present (Psych) Judgement: Good judgement present (Psych) Assessment & Plan Assessment & Plan (1) Syncope: Code(s): R55 - Syncope and collapse Category: Medical Plan: . (2) Staring episodes: Code(s): R40.4 - Transient alteration of awareness Category: Medical Plan: . (3) Dizziness: Code(s): R42 - Dizziness and giddiness Category: Medical Plan: . Plan Jasmin is a 34-year-old female patient with a past medical history of tachycardia, constipation, kidney stones, and asthma who is presenting to the clinic today for episodes of syncope, dizziness, tachycardia, and some episodes of staring as well as loss of awareness. 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 A 72 hour EEG did show a left temporal sharp waves consistent with her findings on the MRI. We will start a trial of lamotrigine with a slow taper up to 100 mg twice daily. She also has been experiencing near daily migraine-type headaches and therefore I am advising her to start a trial of Emgality. I will have her start the Emgality when she is at goal dose of the lamotrigine as to not start to agents at 1 time as it would be difficult to evaluate for any side effects this way. (patient has a history of kidney stones making a report candidate for topiramate, she also has history of asthma making her a poor candidate for beta- blockers, and she is currently using buspirone making her a poor candidate for tricyclic antidepressants. My choice of anti CGRP agent also is in co nsideration of her history of constipation and therefore I will avoid Aimovig). -Start a trial of lamotrigine with a slow taper to a goal dose of 100 mg twice daily -When she is at goal dose of the lamotrigine, start emgality including loading and maintenance dose -Reduce diclofanac to 2-3 times per week -Follow up in 6 weeks Medications: New galcanezumab-gnlm (Emgality Pen) 120 mg subcut QMONTH 1 mL 4RF galcanezumab-gnlm (Emgality Pen) Loading dose 240 mg (2 mL) subcut ONCE 2 mL 0RF Coding Level of Care Code Est Pt Level 4 (07320) Diagnoses Syncope R55 Staring episodes R40.4 Dizziness R42
[2025-01-31 08:50] VITALS: BP 118/84; PULSE 78; RESP 16; O2SAT 99; BMI 36.3
== END 2025-01-31 09:16 | disposition home or self-care (01) ==
LOC: HO.HSM 08:24
PROVIDERS: PCP Internal Medicine; Visit Provider Nurse Practitioner
DX: R55 Syncope and collapse (principal); R40.4 Transient alteration of awareness; R42 Dizziness and giddiness
CPT/HCPCS: 99214